=== PATIENT | female | born 1955 | race Caucasian/White ===

== ENCOUNTER → 2016-12-02 | Outpatient (CLI) | payer BC ==
--- NOTE | 2016-12-02 18:56 | XR ---
EXAMINATION TYPE: XR spine complete AP and Lat DATE OF EXAM: 12/02/2016 COMPARISON: NONE HISTORY: Neck pain back pain TECHNIQUE: 10 views FINDINGS: There is anterior spurring at C5-6 C6-7. Atlantoaxial facet joint is normal. There is no th oracic paraspinal mass. I see no thoracic compression fracture. There is no lumbar compression fractu re. Vertebra have overall normal alignment. Posterior elements are intact. Sacroiliac joints appear i ntact. IMPRESSION: Mild spondylotic changes. No fracture.
== END ==
LOC: RADXRMAIN 18:07
PROVIDERS: ATTEND Internal Medicine Rheumatology
DX: M47.812 Spondylosis without myelopathy or radiculopathy, cervical region (principal); M47.814 Spondylosis without myelopathy or radiculopathy, thoracic region; M47.816 Spondylosis without myelopathy or radiculopathy, lumbar region
CPT/HCPCS: 72082

== ENCOUNTER → 2017-03-13 | Outpatient (CLI) | payer BC | END | disposition home or self-care (01) | LOC: LABWHC1 12:57 | PROVIDERS: ATTEND Dermatology Dermatopathology | DX: L40.0 Psoriasis vulgaris (principal); Z11.1 Encounter for screening for respiratory tuberculosis; Z79.899 Other long term (current) drug therapy | CPT/HCPCS: 36415; 86480 ==

== ENCOUNTER 2017-10-24 06:56 | Day surgery (SDC) | payer BC ==
[2017-10-21 13:42] VITALS: BMI 32.5
[~2017-10-24 06:56] MED LIST: LACTATED RINGERS 1,000 ML IV SCH
[2017-10-24 07:27] LABS: Glucose,Whole Blood 120 mg/dL (75-99)
[2017-10-24 07:29] VITALS: RESP 16; TEMP 97.8
[2017-10-24] MEDS ORDERED: LIDOCAINE 1% 20 ML VIAL (10MG/ML) FOR IV START INTRADERMA ONE (07:29)
[2017-10-24] MEDS ORDERED: PROPOFOL 10 MG/ML 20 ML VIAL IV ONE (08:25)
--- NOTE | 2017-10-24 08:49 | P.PCN ---
Date of Procedure: 10/24/17 Procedure(s) Performed: BRIEF HISTORY: Patient is a 62-year-old pleasant 8 female, scheduled for an elective colonoscopy as a part of as a part of screening for colon neoplasia. PROCEDURE PERFORMED: Colonoscopy with biopsy. PREOPERATIVE DIAGNOSIS: Screening for colon cancer. IV sedation per Anesthesia. PROCEDURE: After informed consent was obtained, the patient, was brought into the endoscopy unit. IV sedation was administered by Anesthesia under continuous monitoring. Digital rectal examination was normal. Initially the Olympus CF- 160 flexible video colonoscope was then inserted in the rectum, gradually advanced into the cecum without any difficulty. Careful examination was performed as the scope was gradually being withdrawn. Ileocecal valve and the appendiceal orifice were visualized and appeared normal. Prep was excellent. Mucosa of the cecum, ascending colon, transverse colon, descending colon was normal. In the sigmoid colon there was a 5 mm sessile polyp removed by cold biopsy. In the rectum there was another 5 mm polyp that was removed by cold biopsy., sigmoid colon, and rectum appeared normal. Retroflexion was performed in the rectum and no lesions were seen. The patient tolerated the procedure well. IMPRESSION: 5 mm sigmoid colon polyp status post removal by cold biopsy 5 mm rectal polyp status post removal by biopsy Scattered sigmoid diverticulosis RECOMMENDATIONS: Findings of this examination were discussed with the patient and her family. She was advised to follow with the biopsy results. If the biopsy shows a tubular adenoma, she can have a repeat colonoscopy in 5 years.
[2017-10-24 09:05] VITALS: BP 113/75; PULSE 58
== END 2017-10-24 09:26 | disposition home or self-care (01) ==
LOC: ORWHC2ENDO 06:56
PROVIDERS: ATTEND Internal Medicine Gastroenterology
DX: Z12.11 Encounter for screening for malignant neoplasm of colon (principal); K63.5 Polyp of colon; K62.1 Rectal polyp; K57.30 Diverticulosis of large intestine without perforation or abscess without bleeding; Z79.82 Long term (current) use of aspirin; Z79.890 Hormone replacement therapy; Z79.899 Other long term (current) drug therapy; I25.10 Atherosclerotic heart disease of native coronary artery without angina pectoris; I10 Essential (primary) hypertension; I25.2 Old myocardial infarction; E78.5 Hyperlipidemia, unspecified; J45.909 Unspecified asthma, uncomplicated; G47.33 Obstructive sleep apnea (adult) (pediatric); Z99.89 Dependence on other enabling machines and devices; E07.9 Disorder of thyroid, unspecified; Z79.84 Long term (current) use of oral hypoglycemic drugs; Z79.1 Long term (current) use of non-steroidal anti-inflammatories (NSAID)
CPT/HCPCS: 88305; 45380; J2704

== ENCOUNTER → 2018-03-13 | Outpatient (CLI) | payer BC ==
--- NOTE | 2018-03-13 09:16 | MM ---
Reason for exam: clinical finding. Last mammogram was performed 4 years and 6 months ago. History: Patient is postmenopausal. Family history of breast cancer in maternal aunt at age 70. Indicated problem(s): lump or thickening in the right breast. Physical Findings: Nurse Summary: 2cm nodule in the right breast at 4 o'clock (nurse mj). MG 3D Diag Mammo W/Cad NATAN Bilateral CC and MLO view(s) were taken. Prior study comparison: August 27, 2013, bilateral MG screening mammo w CAD. July 14, 2012, bilateral digital screening mammo w/CAD. There are scattered fibroglandular densities. No suspicious abnormality. No significant new findings when compared with previous films. These results were verbally communicated with the patient and result sheet given to the patient on 03/13/18. ASSESSMENT: Incomplete: need additional imaging evaluation, BI-RAD 0 RECOMMENDATION: Ultrasound of the right breast. (palpable abnormality)
--- NOTE | 2018-03-13 09:22 | USB ---
Reason for exam: additional evaluation requested from abnormal screening. History: Patient is postmenopausal. Family history of breast cancer in maternal aunt at age 70. US Breast Limited RT Right limited breast ultrasound including focal area of concern, retroareolar and axilla demonstrates a 3.2 x 1.1 x 3.9cm solid, lipoma at 4 o'clock, benign finding. These results were verbally communicated with the patient and result sheet given to the patient on 03/13/18. ASSESSMENT: Benign, BI-RAD 2 RECOMMENDATION: Routine screening mammogram of both breasts in 1 year.
== END | disposition home or self-care (01) ==
LOC: RADMAMWWP 07:06
PROVIDERS: ATTEND Internal Medicine
DX: N63.10 Unspecified lump in the right breast, unspecified quadrant (principal); R92.8 Other abnormal and inconclusive findings on diagnostic imaging of breast
CPT/HCPCS: 77062; 77066

== ENCOUNTER 2018-11-21 15:45 | Observation (INO) | payer BC ==
[2018-11-21] MEDS ORDERED: IBUPROFEN 600 MG TAB PO STA (16:47)
--- NOTE | 2018-11-21 16:50 | ED ---
Chest Pain HPI - General Chief Complaint: Chest Pain Stated Complaint: Chest pain Time Seen by Provider: 11/21/18 15:50 Source: patient Mode of arrival: ambulatory Limitations: no limitations - History of Present Illness Initial Comments: The patient is 63-year-old female presents emergency room with reported chest pain which started sudden onset around 4 AM. She describes it as a substernal pressure without radiation. She admits to similar symptoms approximately 12 years ago when she had a KS. It required one stent placement. States that she did follow with Dr. Martinez every year. States that recently she has not seen him. Her last stress test was 3 years ago. She admits to associated shortness of breath and diaphoresis. Reports that she had numbness in her bilateral upper extremities. She did take an aspirin. Since her pain has been persistent she did finally agree to evaluation. This time she reports that her pain is graded as a 4 out of 10. She has ripping or tearing sensation to her back. Denies any nausea or vomiting. No cough, fevers or chills. Denies any abdominal pain. No changes in bowel or bladder habits. No history of DVTs or PEs. There are no other alleviating, precipitating or modifying factors - Related Data Home Medications Medication Instructions Recorded Confirmed Albuterol Inhaler [Ventolin Hfa 1 - 2 puff INHALATION RT-Q6H PRN 10/21/17 11/21/18 Inhaler] Aspirin 325 mg PO AC-SUPPER 10/21/17 11/21/18 Atenolol 25 mg PO DAILY 10/21/17 11/21/18 Atorvastatin [Lipitor] 20 mg PO AC-SUPPER 10/21/17 11/21/18 Citalopram Hydrobromide 20 mg PO AC-SUPPER 10/21/17 11/21/18 [Citalopram HBr] Levothyroxine Sodium 125 mcg PO HS 10/21/17 11/21/18 Lisinopril [Zestril] 20 mg PO AC-SUPPER 10/21/17 11/21/18 Meloxicam [Mobic] 7.5 mg PO AC-SUPPER 10/21/17 11/21/18 Montelukast [Singulair] 10 mg PO AC-SUPPER 10/21/17 11/21/18 Multivitamins, Thera [Multivitamin 1 tab PO DAILY 10/21/17 11/21/18 (formulary)] Ustekinumab [Stelara] 45 mg SQ Q90D 10/21/17 11/21/18 metFORMIN HCL [Glucophage] 500 mg PO BID 10/21/17 11/21/18 Mometasone/Formoterol [Dulera 100 2 puff INHALATION RT-BID 10/24/17 11/21/18 Mcg/5 Mcg Inhaler] Omeprazole 40 mg PO DAILY 11/21/18 11/21/18 Allergies Allergy/AdvReac Type Severity Reaction Status Date / Time No Known Allergies Allergy Verified 11/21/18 16:40 Review of Systems ROS Statement: Those systems with pertinent positive or pertinent negative responses have been documented in the HPI. ROS Other: All systems not noted in ROS Statement are negative. EKG Findings - EKG Comments: EKG Findings:: EKG demonstrates a normal sinus rhythm. Ventricular rate of 70. NH interval 154. QRS 98. QTC 483. There are no acute ST segment elevations or depressions concerning for ischemic changes Past Medical History Past Medical History: Asthma, Diabetes Mellitus, Eye Disorder, Liver Disease, Myocardial Infarction (KS), Osteoarthritis (OA), Pneumonia, Skin Disorder, Sleep Apnea/CPAP/BIPAP, Thyroid Disorder Additional Past Medical History / Comment(s): SOB with exertion, beginning of cataracts, fatty liver, psoroiatic arthritis, psoriasis, borderline sleep apnea, no current use of CPAP, hypothyroid, sensitive/delicate skin, tears and bruises easily. Last Myocardial Infarction Date:: 10 yrs ago History of Any Multi-Drug Resistant Organisms: None Reported Past Surgical History: Cholecystectomy, Heart Catheterization With Stent, Hysterectomy Additional Past Surgical History / Comment(s): Anal sphincter tear surgery, D&C, several miscarriages, stillbirth, laporotomy. Past Anesthesia/Blood Transfusion Reactions: Postoperative Nausea & Vomiting (PONV) Additional Past Anesthesia/Blood Transfusion Reaction / Comment(s): PONV with some surgeries, not all. Date of Last Stent Placement:: 2007 Past Psychological History: No Psychological Hx Reported Smoking Status: Former smoker Past Alcohol Use History: Rare Past Drug Use History: None Reported - Past Family History Mother Family Medical History: Cancer Additional Family Medical History / Comment(s): Lung cancer, cardiomyopathy, blood clots. General Exam Limitations: no limitations General appearance: alert, in no apparent distress Head exam: Present: atraumatic, normocephalic, normal inspection Eye exam: Present: normal appearance, PERRL, EOMI. Absent: scleral icterus, conjunctival injection, periorbital swelling ENT exam: Present: normal exam, mucous membranes moist Neck exam: Present: normal inspection. Absent: tenderness, meningismus, lymphadenopathy Respiratory exam: Present: normal lung sounds bilaterally. Absent: respiratory distress, wheezes, rales, rhonchi, stridor Cardiovascular Exam: Present: regular rate, normal rhythm, normal heart sounds. Absent: systolic murmur, diastolic murmur, rubs, gallop, clicks GI/Abdominal exam: Present: soft, normal bowel sounds. Absent: distended, tenderness, guarding, rebound, rigid Extremities exam: Present: normal inspection, full ROM, normal capillary refill. Absent: tenderness, pedal edema, joint swelling, calf tenderness Back exam: Present: normal inspection Neurological exam: Present: alert, oriented X3, CN II-XII intact Psychiatric exam: Present: normal affect, normal mood Skin exam: Present: warm, dry, intact, normal color. Absent: rash Course Vital Signs 11/21/18 11/21/18 11/21/18 15:46 17:13 19:17 Temperature 97.8 F Pulse Rate 66 68 60 Pulse Rate [ Laundry Manager ] Respiratory 16 18 18 Rate Blood Pressure 147/93 141/84 132/60 Blood Pressure [Left Arm] O2 Sat by Pulse 97 97 96 Oximetry 11/21/18 11/21/18 11/21/18 19:50 19:57 20:00 Temperature 98.2 F 98.5 F 97.8 F Pulse Rate 63 Pulse Rate [ 62 62 Laundry Manager ] Respiratory 18 16 16 Rate Blood Pressure 125/75 Blood Pressure 132/74 132/74 [Left Arm] O2 Sat by Pulse 96 96 96 Oximetry Chest Pain MDM - Core Measures AMI Core Measures Followed: Yes - Differential Diagnosis AMI, ACS, Pneumonia, Pleurisy-Other - MDM Upon arrival the patient is placed in room 5. She is hooked up to continuous pulse ox and cardiac monitoring. A 12-lead EKG is performed and the patient which demonstrates no acute signs of ischemia. Peripheral IV is established. I did offer the patient something for pain control. She is requesting Motrin for headache. Laboratory studies and a chest x-ray performed. Upon return the results are discussed with the patient. Lab results are unremarkable. First troponin is negative. Because the patient states that this feels like her previous KS, I did recommend admission to the hospital in order to continue to trend the patient's troponins and have cardiac evaluation. Patient did agree to this. I did call discuss the case with Dr. Schwarz's PA, Frannie. She did accept admission for the patient. Bridging orders are placed. The patient remained in stable condition and was transferred to the floor Disposition Clinical Impression: Chest pain Disposition: ADMITTED IP TO THIS HOSP Condition: Stable Is patient prescribed a controlled substance at d/c from ED?: No Decision to Admit Reason: Admit from EC Decision Date: 11/21/18 Decision Time: 18:06
[2018-11-21 17:02] LABS: Basophils % (A) 0 %; Eosinophils # (A) 0.1 k/uL (0-0.7); Eosinophils % (A) 2 %; HCT 39.6 % (34.0-46.0); HGB 13.7 gm/dL (11.4-16.0); Lymphocytes % (A) 24 %; MCH 30.6 pg (25.0-35.0); MCHC 34.6 g/dL (31.0-37.0); MCV 88.5 fL (80.0-100.0); Mean Platelet Volume 7.6; Monocytes # (A) 0.4 k/uL (0-1.0); Monocytes % (A) 5 %; Neutrophils # (A) 5.4 k/uL (1.3-7.7); Neutrophils % (A) 66 %; Platelet Count 277 k/uL (150-450); RBC 4.47 m/uL (3.80-5.40); RDW 15.3 % (11.5-15.5); WBC 8.3 k/uL (3.8-10.6)
[2018-11-21 17:10] LABS: ALT 75 U/L (9-52); AST 54 U/L (14-36); African American GFR (CKD) >90 (>60 ml/min/1.73 sqM); Albumin 4.4 g/dL (3.5-5.0); Alkaline Phosphatase 75 U/L (38-126); Anion Gap 9 mmol/L; Blood Urea Nitrogen 14 mg/dL (7-17); Calcium 9.8 mg/dL (8.4-10.2); Carbon Dioxide 23 mmol/L (22-30); Chloride 106 mmol/L (98-107); Glucose 118 mg/dL (74-99); Magnesium 1.9 mg/dL (1.6-2.3); Potassium 4.4 mmol/L (3.5-5.1); Sodium 138 mmol/L (137-145); Total Bilirubin 0.5 mg/dL (0.2-1.3)
[2018-11-21 17:14] LABS: INR 0.9 (<1.2); Partial Thromboplastin Time 23.4 sec (22.0-30.0)
[2018-11-21] MEDS ORDERED: NALOXONE 0.4 MG/ML 1 ML VIAL IV PRN (18:40)
[2018-11-21] MEDS ORDERED: LEVOTHYROXINE 125 MCG TAB PO SCH (21:00)
[2018-11-21] MEDS: SYMBICORT 80-4.5 MCG INHALER INHALATION SCH (21:04)
--- NOTE | 2018-11-21 21:51 | XR ---
EXAMINATION TYPE: XR chest 2V DATE OF EXAM: 11/21/2018 COMPARISON: NONE HISTORY: Chest pain TECHNIQUE: Frontal and lateral views of the chest are obtained. FINDINGS: Cardiac mediastinal silhouette is within normal limits. Atherosclerotic calcifications of the aorta. No pulmonary vascular congestion. Streak-like by basilar opacities likely on the basis of subsegmenta l atelectasis. No focal airspace consolidation. No pleural effusion or pneumothorax. Mild degenerativ e changes of the thoracic spine. IMPRESSION: No acute cardiopulmonary process.
[2018-11-21 21:57] LABS: Glucose,Whole Blood 178 mg/dL (75-99)
[2018-11-21 22:15] VITALS: BMI 32.5
[2018-11-22 05:00] VITALS: RESP 18
[2018-11-22 06:35] LABS: Glucose,Whole Blood 128 mg/dL (75-99)
[2018-11-22] MEDS ORDERED: PANTOPRAZOLE 40 MG TABLET PO SCH (07:30)
[2018-11-22] MEDS: SYMBICORT 80-4.5 MCG INHALER INHALATION SCH (07:48)
[2018-11-22] MEDS ORDERED: ATENOLOL 25 MG TAB PO SCH (09:00)
[2018-11-22 09:11] VITALS: BP 121/65; PULSE 64; TEMP 96.5
[2018-11-22 12:22] LABS: Glucose,Whole Blood 74 mg/dL (75-99)
--- NOTE | 2018-11-22 12:26 | CONS ---
CONSULTATION CHIEF COMPLAINT: Chest pain. This is a 63-year-old lady with history of coronary artery disease, status post prior myocardial infarction and angioplasty more than 10 years ago, diabetes, hypertension, dyslipidemia, who presented to the hospital having had an episode of chest pain. She tells me that she woke up early this morning with an episode of chest discomfort. Describes it as a pressure-like sensation, precordial without any radiation. There was no diaphoresis or shortness of breath. This gradually resolved after she came to the emergency room and received a sublingual nitroglycerin. At the time of my evaluation, she is pain free, hemodynamically stable and wants to go home. EKG does not reveal ischemic changes and cardiac enzymes have been negative. PAST MEDICAL HISTORY: Significant for CAD, hypertension, diabetes, dyslipidemia. MEDICATIONS: Medications at home include Glucophage 500 b.i.d., omeprazole 40 daily, Singulair, Mobic, Zestril, Lipitor, atenolol, aspirin and albuterol. ALLERGIES: There are no known drug allergies. FAMILY HISTORY: Negative for premature coronary artery disease. SOCIAL HISTORY: Negative for smoking, EtOH abuse, or drug abuse. REVIEW OF SYSTEMS: HEENT: Unremarkable. CARDIAC: As described above. RESPIRATORY: As described above. GI: Negative. GENITOURINARY: Negative. MUSCULOSKELETAL: Significant for arthritis. PSYCHOSOCIAL: Negative. ENDOCRINE: Negative. CONSTITUTIONAL: Negative. ONCOLOGICAL: Negative. OLAP DEVELOPER: Negative. Rest of the system review is not relevant. EXAM: Patient is comfortable at rest. Vital signs are stable. There is no jugular venous distention. Carotid upstroke is normal. There is no bruit. Chest exam reveals good air entry bilaterally. Heart exam reveals first and second heart sounds. No gallop. No murmur. No rub. Abdomen is soft, nontender. Exam of extremities did not reveal any edema. Peripheral pulses are felt OLAP DEVELOPER exam did not reveal focal neurological deficits. LAB: Show a hemoglobin of 13.7, platelet count is 277. Potassium is 4.4, creatinine is 0.5. Three sets of troponins are negative. ASSESSMENT: 1. Precordial chest pain, rule out ischemia. 2. Hypertension. 3. Dyslipidemia. PLAN: Patient wishes to go home and I will arrange for an outpatient stress test on her. I will obtain a 2D echo on her today. MMODL / IJN: [id number] /
[2018-11-22] MEDS ORDERED: MONTELUKAST 10 MG TAB PO SCH (17:30)
[2018-11-22] MEDS ORDERED: CITALOPRAM HYDROBROMIDE 20 MG TAB PO SCH (17:30)
[2018-11-22] MEDS ORDERED: MELOXICAM 7.5 MG TAB PO SCH (17:30)
[2018-11-22] MEDS ORDERED: ASPIRIN 325 MG TAB PO SCH (17:30)
[2018-11-22] MEDS ORDERED: ATORVASTATIN 20 MG TAB PO SCH (17:30)
[2018-11-22] MEDS ORDERED: LISINOPRIL 20 MG TAB PO SCH (17:30)
--- NOTE | 2018-11-22 18:28 | HP ---
HISTORY AND PHYSICAL This is a combined physical history of discharge summary. DATE OF SERVICE: This is 11/22/2018 CHIEF COMPLAINT: Chest pain. HISTORY OF PRESENT ILLNESS: This 63-year-old woman with a past history of asthma, diabetes mellitus, history of myocardial infarction, DJD, history of pneumonia, sleep apnea, history of CAD and stent being followed by Dr. Liao in the outpatient setting, was admitted with chest pain. The patient is complaining of pain felt in the anterior part of the chest yesterday which was pressure type of pain. The pain was felt at 4:00 am last night and the pain was almost similar to the pain the patient had when the patient had a heart attack about 12 years ago. The patient came to [facility] and was admitted for evaluation and treatment. There is no history of radiation of the pain, excessive sweating or palpitations. After admission the patient had multiple evaluations. EKG showed minimal ST-T changes. Otherwise, the troponins were found to be negative. Cardiology evaluation in progress. AST and ALT are mildly elevated at 54 and 75. There is no history of any fever or rigors. No headache, loss of consciousness or seizures. PAST MEDICAL HISTORY: History of asthma, diabetes, history of liver disease, history of myocardial infarction, history of pneumonia, history of sleep apnea, history of shortness of breath, history of fatty liver, psoriatic arthritis, psoriasis, history of CAD stent. HOME MEDICATION: 1. Metformin 500 mg p.o. b.i.d. 2. ( ) 45 mg subcu 90 days. 3. Lopressor 40 mg p.o. 4. Multivitamins. 5. Singulair 10 mg at supper. 6. Dulera 2 puffs b.i.d. 7. Mobic 7.5 mg a.c. supper. 8. Zestril 20 mg a.c. supper. 9. Levothyroxine 25 mcg p.o. q.h.s. 10.Celexa 20 mg a.c. supper. 11.Lipitor 20 mg a.c. supper. 12.Atenolol 25 mg p.o. 13.Aspirin 320 mg p.o. a.c. supper. 14.Albuterol 1-2 puffs q.6h p.r.n. ALLERGIES: Unknown. FAMILY HISTORY: History of lung cancer, history of cardiomyopathy, blood clots. SOCIAL HISTORY: No history of current smoking, previous smoker. No alcohol. REVIEW OF SYSTEMS: ENT No history of diminished hearing or vision. CARDIOVASCULAR As mentioned earlier. RESPIRATORY As mentioned earlier. GI No nausea, vomiting, or diarrhea. No dysuria. NERVOUS No numbness or weakness. ALLERGY/IMMUNOLOGY No asthma or hayfever. MUSCULOSKELETAL As mentioned earlier, HEMATOLOGY/ONCOLOGY Negative. ENDOCRINE Hypothyroidism, diabetes mellitus. CONSTITUTIONAL As mentioned earlier. PSYCHIATRY As mentioned earlier. PHYSICAL EXAMINATION: Alert and oriented x3. Pulse 64, blood pressure 120/65, respiration 18, temperature 98.5, pulse ox 94% on room air. HEENT: Conjunctivae normal. Oral mucosa moist. NECK: No jugular venous distention. No lymph node enlargement. CARDIOVASCULAR: S1, S2. RESPIRATORY: Diminished breath sounds at the bases. No rhonchi, no crackles. ABDOMEN: Soft, nontender. LEGS: No swelling. NERVOUS SYSTEM: Higher functions mentioned earlier. Moves all four limbs. No focal deficits. JOINTS: No active deforming arthropathy. LABS: CBC within normal limits. Glucose 178. Troponins negative. AST and ALT noted. EKG noted. Chest x-ray noted. ASSESSMENT: 1. Chest pain for evaluation, myocardial infarction ruled out, possible unstable angina. 2. History of coronary artery disease and stent. 3. History of asthma. 4. Diabetes type 2. 5. History of liver disease with fatty liver. 6. History of myocardial infarction. 7. History of degenerative joint disease. 8. History of pneumonia. 9. History of sleep apnea. 10.History of hypothyroidism. 11.Psoriatic arthritis and psoriasis. 12.History of cholecystectomy. 13.Remote history of nicotine dependence. RECOMMENDATIONS AND DISCUSSION: This 63-year-old woman who presented with multiple medical issues, at this time I recommend to continue current medication, continue symptomatic treatment. Cardiology has evaluated the patient and the patient is keen on going home. I would recommend the patient to be discharged. Continue the same medications as listed above and follow up with Cardiology for an outpatient stress test and as well as follow up with Dr. Liao. Please refer to the discharge sheet for list of medications. MMODL / IJN: [id number] /
== END 2018-11-22 13:20 | disposition home or self-care (01) ==
LOC: EC 15:45 → 3SCARD 18:41
PROVIDERS: ADMIT Hospitalist; ATTEND Hospitalist
DX: R07.2 Precordial pain (principal); R06.02 Shortness of breath; R61 Generalized hyperhidrosis; R20.0 Anesthesia of skin; J45.909 Unspecified asthma, uncomplicated; E11.9 Type 2 diabetes mellitus without complications; I25.2 Old myocardial infarction; M19.90 Unspecified osteoarthritis, unspecified site; G47.30 Sleep apnea, unspecified; I25.10 Atherosclerotic heart disease of native coronary artery without angina pectoris; K76.0 Fatty (change of) liver, not elsewhere classified; L40.50 Arthropathic psoriasis, unspecified; K76.9 Liver disease, unspecified; E03.9 Hypothyroidism, unspecified; I10 Essential (primary) hypertension; E78.5 Hyperlipidemia, unspecified; Z95.5 Presence of coronary angioplasty implant and graft; Z87.891 Personal history of nicotine dependence; Z87.01 Personal history of pneumonia (recurrent); Z90.49 Acquired absence of other specified parts of digestive tract; Z99.89 Dependence on other enabling machines and devices; Z79.84 Long term (current) use of oral hypoglycemic drugs; Z79.51 Long term (current) use of inhaled steroids; Z79.899 Other long term (current) drug therapy; Z79.82 Long term (current) use of aspirin; Z79.1 Long term (current) use of non-steroidal anti-inflammatories (NSAID); Z79.890 Hormone replacement therapy; Z80.1 Family history of malignant neoplasm of trachea, bronchus and lung; Z82.49 Family history of ischemic heart disease and other diseases of the circulatory system; Z83.2 Family history of diseases of the blood and blood-forming organs and certain disorders involving the immune mechanism
CPT/HCPCS: 99285; 36415; 94640 ×2; 94760; 93005; 80053; 83735; 84484 ×2; 85025; 85610; 85730; 71046; G0378 ×2

== ENCOUNTER → 2018-12-16 | Outpatient (CLI) | payer BC ==
--- NOTE | 2018-12-16 10:01 | US ---
EXAMINATION TYPE: US liver DATE OF EXAM: 12/16/2018 COMPARISON: NONE CLINICAL HISTORY: R94.5 Abnormal results of liver function studies. Abn labs, no pain, GB removed EXAM MEASUREMENTS: Liver Length: 19.8 cm CBD: 0.3 cm Right Kidney: 11.0 x 4.8 x 4.4 cm Pancreas: wnl Liver: Appears echogenic and coarse in appearance. Enlarged in size. Gallbladder: Surgically absent Evidence for sonographic Ball's sign: neg CBD: wnl Right Kidney: wnl There is no ascites. IMPRESSION: Hepatomegaly, correlate for possible hepatocellular disease, hepatic steatosis.
== END | disposition home or self-care (01) ==
LOC: RADUSWWP 08:22
PROVIDERS: ATTEND Internal Medicine
DX: R16.0 Hepatomegaly, not elsewhere classified (principal); R94.5 Abnormal results of liver function studies
CPT/HCPCS: 76705

== ENCOUNTER → 2019-04-20 | Outpatient (CLI) | payer BC ==
--- NOTE | 2019-04-20 09:46 | MM ---
Reason for exam: screening (asymptomatic). Last mammogram was performed 1 year and 1 month ago. History: Patient is postmenopausal. Family history of breast cancer in maternal aunt at age 70. Physical Findings: A clinical breast exam by your physician is recommended on an annual basis and results should be correlated with mammographic findings. MG Screening Mammo w CAD Bilateral CC and MLO view(s) were taken. Prior study comparison: March 13, 2018, bilateral MG 3d diag mammo w/cad NATAN. August 27, 2013, bilateral MG screening mammo w CAD. There are scattered fibroglandular densities. There is no discrete abnormality. No significant changes when compared with prior studies. ASSESSMENT: Negative, BI-RAD 1 RECOMMENDATION: Routine screening mammogram of both breasts in 1 year.
== END | disposition home or self-care (01) ==
LOC: RADMAMWWP 07:09
PROVIDERS: ATTEND Internal Medicine
DX: Z12.31 Encounter for screening mammogram for malignant neoplasm of breast (principal)
CPT/HCPCS: 77067

== ENCOUNTER → 2019-04-20 | Outpatient (CLI) | payer BC ==
[2019-04-20 08:12] LABS: Basophils # (A) 0.1 k/uL (0-0.2); Basophils % (A) 1 %; Eosinophils # (A) 0.1 k/uL (0-0.7); Eosinophils % (A) 1 %; HCT 42.5 % (34.0-46.0); HGB 13.7 gm/dL (11.4-16.0); Lymphocytes % (A) 34 %; MCH 28.7 pg (25.0-35.0); MCHC 32.3 g/dL (31.0-37.0); MCV 88.8 fL (80.0-100.0); Mean Platelet Volume 7.9; Monocytes # (A) 0.3 k/uL (0-1.0); Monocytes % (A) 6 %; Neutrophils # (A) 3.3 k/uL (1.3-7.7); Neutrophils % (A) 55 %; Platelet Count 261 k/uL (150-450); RBC 4.79 m/uL (3.80-5.40); RDW 13.3 % (11.5-15.5); WBC 5.9 k/uL (3.8-10.6)
[2019-04-20 18:09] LABS: African American GFR (CKD) 108.4 (60.0-200.0); Albumin 4.8 g/dL (3.80-4.90); Anion Gap 6.7 mmol/L (4.00-12.00); BUN/Creat Ratio 15.71 Ratio (12.00-20.00); Calcium 9.7 mg/dL (8.7-10.3); Carbon Dioxide 28.3 mmol/L (21.6-31.8); Globulin 1.6 g/dL (1.6-3.3); Non-African American GFR(CKD) 93.5 (60.0-200.0); Potassium 4.2 mmol/L (3.5-5.5); Total Bilirubin 0.6 mg/dL (0.3-1.2); Total Protein 6.4 g/dL (6.2-8.2)
== END | disposition home or self-care (01) ==
LOC: LABWHC1 07:12
PROVIDERS: ATTEND Dermatology Dermatopathology
DX: L40.0 Psoriasis vulgaris (principal); K76.0 Fatty (change of) liver, not elsewhere classified; Z79.899 Other long term (current) drug therapy
CPT/HCPCS: 36415; 80053; 85025; 86480

== ENCOUNTER → 2020-02-03 | Outpatient (CLI) | payer BC | END | disposition home or self-care (01) | LOC: LABWHC1 13:38 | PROVIDERS: ATTEND Internal Medicine | DX: R05 Cough (principal) | CPT/HCPCS: U0003; C9803 ==

== ENCOUNTER 2020-03-01 09:26 | Emergency (ER) | payer BC ==
[2020-03-01 09:35] VITALS: BP 119/83; RESP 18; TEMP 97.9
[2020-03-01] MEDS ORDERED: SODIUM CHLORIDE 0.9% 1,000 ML IV ONE (09:54)
[2020-03-01] MEDS ORDERED: methylPREDNISolone SOD SUCCI 125 MG/2 ML VIAL IV STA (09:56)
--- NOTE | 2020-03-01 09:58 | ED ---
General Adult HPI - General Chief complaint: Nausea/Vomiting/Diarrhea Stated complaint: headache/vomiting/diarrhea Time Seen by Provider: 03/01/20 09:37 Source: patient, RN notes reviewed, old records reviewed Mode of arrival: ambulatory Limitations: no limitations - History of Present Illness Initial comments: 64-year-old female presents emergency department today with complaints of diarrhea headache nausea vomiting and cough for the past 5 days. Patient was sent by her PCP as well as her for evaluation. She denies any known history of sick contacts. She reports that she seems to be somewhat improving is not have any vomiting in the past 24 hours. Patient states that she has had history of asthma does complain of some dyspnea. She denies any other complaints. - Related Data Home Medications Medication Instructions Recorded Confirmed Aspirin 325 mg PO HS 10/21/17 03/01/20 Atorvastatin [Lipitor] 20 mg PO HS 10/21/17 03/01/20 Citalopram Hydrobromide 20 mg PO HS 10/21/17 03/01/20 [Citalopram HBr] Levothyroxine Sodium 125 mcg PO DAILY 10/21/17 03/01/20 Montelukast [Singulair] 10 mg PO HS 10/21/17 03/01/20 Multivitamins, Thera [Multivitamin 1 tab PO DAILY 10/21/17 03/01/20 (formulary)] atenoloL [Atenolol] 25 mg PO DAILY 10/21/17 03/01/20 lisinopriL [Zestril] 20 mg PO HS 10/21/17 03/01/20 metFORMIN HCL [Glucophage] 500 mg PO BID 10/21/17 03/01/20 Omeprazole 40 mg PO HS 11/21/18 03/01/20 Budesonide/Formoterol Fumarate 2 puff INHALATION RT-BID 03/01/20 03/01/20 [Symbicort 160-4.5 Mcg Inhaler] Previous Rx's Medication Instructions Recorded Azithromycin [Zithromax Z-pack (6 0 mg PO DIRECTED 5 Days #6 tab 03/01/20 tabs)] Cholecalciferol [Vitamin D3] 400 unit PO DAILY@1200 #20 tablet 03/01/20 Ondansetron Odt [Zofran Odt] 4 mg PO Q8HR PRN #12 tab 03/01/20 Zinc Gluconate [Zinc] 50 mg PO DAILY #20 tablet 03/01/20 methylPREDNISolone Dose Pack 4 mg PO DIRECTED #21 package 03/01/20 [Medrol Dose Pack] Allergies Allergy/AdvReac Type Severity Reaction Status Date / Time No Known Allergies Allergy Verified 03/01/20 11:11 Review of Systems ROS Statement: Those systems with pertinent positive or pertinent negative responses have been documented in the HPI. ROS Other: All systems not noted in ROS Statement are negative. Past Medical History Past Medical History: Asthma, Diabetes Mellitus, Eye Disorder, Liver Disease, Myocardial Infarction ([place]), Osteoarthritis (OA), Pneumonia, Skin Disorder, Sleep Apnea/CPAP/BIPAP, Thyroid Disorder Additional Past Medical History / Comment(s): SOB with exertion, beginning of cataracts, fatty liver, psoroiatic arthritis, psoriasis, borderline sleep apnea, no current use of CPAP, hypothyroid, sensitive/delicate skin, tears and bruises easily. Last Myocardial Infarction Date:: 10 yrs ago History of Any Multi-Drug Resistant Organisms: None Reported Past Surgical History: Cholecystectomy, Heart Catheterization With Stent, Hysterectomy Additional Past Surgical History / Comment(s): Anal sphincter tear surgery, D&C, several miscarriages, stillbirth, laporotomy. Past Anesthesia/Blood Transfusion Reactions: Postoperative Nausea & Vomiting (PONV) Additional Past Anesthesia/Blood Transfusion Reaction / Comment(s): PONV with some surgeries, not all. Date of Last Stent Placement:: 2007 Past Psychological History: No Psychological Hx Reported Smoking Status: Former smoker Past Alcohol Use History: Rare Past Drug Use History: None Reported - Past Family History Mother Family Medical History: Cancer Additional Family Medical History / Comment(s): Lung cancer, cardiomyopathy, blood clots. General Exam - General Exam Comments Initial Comments: 64-year-old female. No distress. Limitations: no limitations General appearance: alert, in no apparent distress Head exam: Present: atraumatic, normocephalic, normal inspection Eye exam: Present: normal appearance, PERRL, EOMI. Absent: scleral icterus, conjunctival injection, periorbital swelling ENT exam: Present: normal exam Neck exam: Present: normal inspection. Absent: tenderness, meningismus, lymphadenopathy Respiratory exam: Present: normal lung sounds bilaterally. Absent: respiratory distress, wheezes, rales, rhonchi, stridor Cardiovascular Exam: Present: regular rate, normal rhythm, normal heart sounds. Absent: systolic murmur, diastolic murmur, rubs, gallop, clicks GI/Abdominal exam: Present: soft, normal bowel sounds. Absent: distended, tenderness, guarding, rebound, rigid Extremities exam: Present: normal inspection, full ROM, normal capillary refill. Absent: tenderness, pedal edema, joint swelling, calf tenderness Back exam: Present: normal inspection Neurological exam: Present: alert, oriented X3, CN II-XII intact Psychiatric exam: Present: normal affect, normal mood Skin exam: Present: warm, dry, intact, normal color. Absent: rash Course Vital Signs 03/01/20 09:32 Temperature 97.9 F Pulse Rate 67 Respiratory 18 Rate Blood Pressure 119/83 O2 Sat by Pulse 96 Oximetry EKG Findings - EKG Comments: EKG Findings:: EKG shows normal sinus rhythm and nonspecific ST abnormality. Abnormal EKG. Ventricular rate of 94 bpm. Was 152 ms. QS duration is 94 ms. QT QTc is 350/437 ms. Medical Decision Making - Medical Decision Making 64-year-old female presents emergency room today with cough congestion nausea and fatigue. Patient is here with similar complaints. Has been test positive for cocaine. Her test is negative. Chest x-ray shows no infiltrate. She has history of asthma. She is given IV saline eyedrops fluids. She was reevaluated and resting heavily bed. Discussed signs and the Patient on azithromycin and steroids vitamin D and Zofran. Discussed return parameters - Lab Data Result diagrams: 03/01/20 09:59 03/01/20 09:59 Lab Results 03/01/20 03/01/20 03/01/20 Range/Units 09:59 09:59 09:59 WBC 4.5 (3.8-10.6) k/uL RBC 4.75 (3.80-5.40) m/uL Hgb 14.1 (11.4-16.0) gm/dL Hct 40.0 (34.0-46.0) % MCV 84.3 (80.0-100.0) fL MCH 29.7 (25.0-35.0) pg MCHC 35.2 (31.0-37.0) g/dL RDW 13.3 (11.5-15.5) % Plt Count 287 (150-450) k/uL MPV 7.3 Neutrophils % 67 % Lymphocytes % 23 % Monocytes % 7 % Eosinophils % 1 % Basophils % 1 % Neutrophils # 3.0 (1.3-7.7) k/uL Lymphocytes # 1.1 (1.0-4.8) k/uL Monocytes # 0.3 (0-1.0) k/uL Eosinophils # 0.0 (0-0.7) k/uL Basophils # 0.1 (0-0.2) k/uL PT 9.9 (9.0-12.0) sec INR 0.9 (<1.2) APTT 22.8 (22.0-30.0) sec Sodium 141 (137-145) mmol/L Potassium 3.2 L (3.5-5.1) mmol/L Chloride 105 (98-107) mmol/L Carbon Dioxide 28 (22-30) mmol/L Anion Gap 8 mmol/L BUN 9 (7-17) mg/dL Creatinine 0.54 (0.52-1.04) mg/dL Est GFR (CKD-EPI)AfAm >90 (>60 ml/min/1.73 sqM) Est GFR (CKD-EPI)NonAf >90 (>60 ml/min/1.73 sqM) Glucose 120 H (74-99) mg/dL Plasma Lactic Acid Barber (0.7-2.0) mmol/L Calcium 9.3 (8.4-10.2) mg/dL Magnesium 1.7 (1.6-2.3) mg/dL Total Bilirubin 1.2 (0.2-1.3) mg/dL AST 63 H (14-36) U/L ALT 70 H (4-34) U/L Alkaline Phosphatase 64 (38-126) U/L Lactate Dehydrogenase 666 H (313-618) U/L C-Reactive Protein 21.2 H (<10.0) mg/L Total Protein 6.6 (6.3-8.2) g/dL Albumin 4.0 (3.5-5.0) g/dL Coronavirus (PCR) (Not Detectd) 03/01/20 03/01/20 Range/Units 09:59 09:59 WBC (3.8-10.6) k/uL RBC (3.80-5.40) m/uL Hgb (11.4-16.0) gm/dL Hct (34.0-46.0) % MCV (80.0-100.0) fL MCH (25.0-35.0) pg MCHC (31.0-37.0) g/dL RDW (11.5-15.5) % Plt Count (150-450) k/uL MPV Neutrophils % % Lymphocytes % % Monocytes % % Eosinophils % % Basophils % % Neutrophils # (1.3-7.7) k/uL Lymphocytes # (1.0-4.8) k/uL Monocytes # (0-1.0) k/uL Eosinophils # (0-0.7) k/uL Basophils # (0-0.2) k/uL PT (9.0-12.0) sec INR (<1.2) APTT (22.0-30.0) sec Sodium (137-145) mmol/L Potassium (3.5-5.1) mmol/L Chloride (98-107) mmol/L Carbon Dioxide (22-30) mmol/L Anion Gap mmol/L BUN (7-17) mg/dL Creatinine (0.52-1.04) mg/dL Est GFR (CKD-EPI)AfAm (>60 ml/min/1.73 sqM) Est GFR (CKD-EPI)NonAf (>60 ml/min/1.73 sqM) Glucose (74-99) mg/dL Plasma Lactic Acid Barber 1.6 (0.7-2.0) mmol/L Calcium (8.4-10.2) mg/dL Magnesium (1.6-2.3) mg/dL Total Bilirubin (0.2-1.3) mg/dL AST (14-36) U/L ALT (4-34) U/L Alkaline Phosphatase (38-126) U/L Lactate Dehydrogenase (313-618) U/L C-Reactive Protein (<10.0) mg/L Total Protein (6.3-8.2) g/dL Albumin (3.5-5.0) g/dL Coronavirus (PCR) Not Detected (Not Detectd) 03/01/20 10:34 EKG performed at 10:30 shows sinus bradycardia otherwise normal EKG. Ventricular rate of 52 bpm. It was 192 ms. QRS duration is 96 ms. QT QTc is 518/41 ms. - Radiology Data Radiology results: report reviewed S x-ray shows COPD changes without acute infiltrate. Disposition Clinical Impression: COVID-19 Disposition: HOME SELF-CARE Condition: Good Instructions (If sedation given, give patient instructions): Viral Syndrome ([place]) Additional Instructions: Follow-up with primary care doctor symptoms continue persist or worsen. Patient is to be away from other people for 14 days with diagnosis of coated. Patient should return to the ED if any alarming signs or symptoms occur. Prescriptions: methylPREDNISolone Dose Pack [Medrol Dose Pack] 4 mg PO DIRECTED #21 package Cholecalciferol [Vitamin D3] 400 unit PO DAILY@1200 #20 tablet Zinc Gluconate [Zinc] 50 mg PO DAILY #20 tablet Azithromycin [Zithromax Z-pack (6 tabs)] 0 mg PO DIRECTED 5 Days #6 tab Ondansetron Odt [Zofran Odt] 4 mg PO Q8HR PRN #12 tab PRN Reason: Nausea Is patient prescribed a controlled substance at d/c from ED?: No Referrals: Chiara Liao MD [Primary Care Provider] - 1-2 days Time of Disposition: 11:40
--- NOTE | 2020-03-01 10:21 | XR ---
EXAMINATION TYPE: XR chest 1V portable DATE OF EXAM: 03/01/2020 COMPARISON: 11/21/2018 HISTORY: Shortness of breath TECHNIQUE: Single frontal view of the chest is obtained. FINDINGS: Heart size stable. Subsegmental changes left lung base. No overt failure. No pleural effus ion. Hyperinflation suggests COPD. Coarsened interstitium stable. IMPRESSION: 1. Correlate for COPD with no definite acute infiltrate. Correlate for chronic interstitial lung dise ase.
[2020-03-01 10:23] LABS: Basophils # (A) 0.1 k/uL (0-0.2); Basophils % (A) 1 %; Eosinophils % (A) 1 %; HGB 14.1 gm/dL (11.4-16.0); Lymphocytes # (A) 1.1 k/uL (1.0-4.8); Lymphocytes % (A) 23 %; MCH 29.7 pg (25.0-35.0); MCHC 35.2 g/dL (31.0-37.0); MCV 84.3 fL (80.0-100.0); Mean Platelet Volume 7.3; Monocytes # (A) 0.3 k/uL (0-1.0); Monocytes % (A) 7 %; Neutrophils % (A) 67 %; Platelet Count 287 k/uL (150-450); RBC 4.75 m/uL (3.80-5.40); RDW 13.3 % (11.5-15.5); WBC 4.5 k/uL (3.8-10.6)
[2020-03-01 10:31] LABS: INR 0.9 (<1.2); Partial Thromboplastin Time 22.8 sec (22.0-30.0); Prothrombin Time 9.9 sec (9.0-12.0)
[2020-03-01 10:45] LABS: ALT 70 U/L (4-34); AST 63 U/L (14-36); African American GFR (CKD) >90 (>60 ml/min/1.73 sqM); Alkaline Phosphatase 64 U/L (38-126); Anion Gap 8 mmol/L; Blood Urea Nitrogen 9 mg/dL (7-17); Calcium 9.3 mg/dL (8.4-10.2); Carbon Dioxide 28 mmol/L (22-30); Chloride 105 mmol/L (98-107); Glucose 120 mg/dL (74-99); LDH 666 U/L (313-618); Magnesium 1.7 mg/dL (1.6-2.3); Non-African American GFR(CKD) >90 (>60 ml/min/1.73 sqM); Potassium 3.2 mmol/L (3.5-5.1); Sodium 141 mmol/L (137-145); Total Bilirubin 1.2 mg/dL (0.2-1.3); Total Protein 6.6 g/dL (6.3-8.2)
[2020-03-01 10:58] LABS: C Reactive Protein 21.2 mg/L (<10.0)
[2020-03-01 12:21] VITALS: PULSE 66
[2020-03-01 20:22] LABS: Ferritin 131.2 ng/mL (10.0-291.0)
== END 2020-03-01 12:17 | disposition home or self-care (01) ==
LOC: EC 09:26
DX: J45.909 Unspecified asthma, uncomplicated (principal); R11.0 Nausea; R53.83 Other fatigue; E03.9 Hypothyroidism, unspecified; M19.90 Unspecified osteoarthritis, unspecified site; E11.9 Type 2 diabetes mellitus without complications; I25.2 Old myocardial infarction; G47.30 Sleep apnea, unspecified; Z79.82 Long term (current) use of aspirin; Z79.899 Other long term (current) drug therapy; Z79.890 Hormone replacement therapy; Z79.51 Long term (current) use of inhaled steroids; Z79.84 Long term (current) use of oral hypoglycemic drugs; Z90.49 Acquired absence of other specified parts of digestive tract; Z87.891 Personal history of nicotine dependence; Z99.89 Dependence on other enabling machines and devices; Z20.828 Contact with and (suspected) exposure to other viral communicable diseases
CPT/HCPCS: 36415; 93005; 80053; 82728; 83605; 83615; 83735; 85025; 85610; 85730; 86140; 84145; 87635; 71045; 99284; 96374; 96361; J2930

== ENCOUNTER → 2020-04-26 | Outpatient (CLI) | payer BC ==
--- NOTE | 2020-05-01 09:31 | MM ---
Reason for exam: screening (asymptomatic). Last mammogram was performed 1 year ago. History: Patient is postmenopausal. Family history of breast cancer in maternal aunt at age 70. Physical Findings: A clinical breast exam by your physician is recommended on an annual basis and results should be correlated with mammographic findings. MG 3D Screening Mammo W/Cad Bilateral CC and MLO view(s) were taken. Prior study comparison: April 20, 2019, bilateral MG screening mammo w CAD. March 13, 2018, bilateral MG 3d diag mammo w/cad NATAN. There are scattered fibroglandular densities. There are benign appearing round calcifications bilaterally. There is chronic tiny nodularity bilaterally. There is no discrete abnormality. ASSESSMENT: Benign, BI-RAD 2 RECOMMENDATION: Routine screening mammogram of both breasts in 1 year.
== END | disposition home or self-care (01) ==
LOC: RADMAMWWP 11:41
PROVIDERS: ATTEND Internal Medicine
DX: Z12.31 Encounter for screening mammogram for malignant neoplasm of breast (principal)
CPT/HCPCS: 77063; 77067

== ENCOUNTER → 2020-07-12 | Outpatient (CLI) | payer BC | END | disposition home or self-care (01) | LOC: LABWHC1 10:52 | PROVIDERS: ATTEND Dermatology Dermatopathology | DX: L40.0 Psoriasis vulgaris (principal); Z79.899 Other long term (current) drug therapy | CPT/HCPCS: 36415; 86480 ==

== ENCOUNTER 2021-03-01 19:34 | Emergency (ER) | payer BC ==
[2021-03-01] MEDS ORDERED: SODIUM CHLORIDE 0.9% 500 ML 500 ML IV ONE (21:27)
[2021-03-01] MEDS ORDERED: DEXAMETHASONE SOD PHOSPHATE 10 MG/ML 1 ML VIAL IVP STA (21:27)
[2021-03-01] MEDS ORDERED: ACETAMINOPHEN TAB 500 MG TAB PO STA (21:37)
[2021-03-01] MEDS ORDERED: IBUPROFEN 600 MG TAB PO STA (21:37)
--- NOTE | 2021-03-01 21:37 | ED ---
General Adult HPI - General Chief complaint: Shortness of Breath Stated complaint: SHANNA,Fever Time Seen by Provider: 03/01/21 21:18 Source: patient Mode of arrival: ambulatory Limitations: no limitations - History of Present Illness Initial comments: 65 year-old female patient presents to the emergency department for evaluation of fever, cough, and shortness of breath that started on Friday. States she is also feeling weak and achy. States she did take tylenol around 12:00 this afternoon. She denies nausea, vomiting, or diarrhea. She denies sputum pro duction with her cough. She has been vaccinated for COVID. Did receive flu shot on Friday. She does have history of COPD, states her O2 saturation is generally around 90%. She does not wear oxygen at home. Patient denies any recent rash, abdominal pain, constipation, back pain, numbness, tingling, dizziness, weakness, hematuria, dysuria, urinary urgency, urinary frequency, headache, visual changes, or any other complaints. - Related Data Home Medications Medication Instructions Recorded Confirmed Aspirin 325 mg PO HS 10/21/17 03/01/21 Atorvastatin [Lipitor] 20 mg PO HS 10/21/17 03/01/21 Citalopram Hydrobromide 20 mg PO HS 10/21/17 03/01/21 Levothyroxine Sodium 125 mcg PO DAILY 10/21/17 03/01/21 Montelukast [Singulair] 10 mg PO HS 10/21/17 03/01/21 Multivitamins, Thera [Multivitamin 1 tab PO HS 10/21/17 03/01/21 (formulary)] atenoloL 25 mg PO DAILY 10/21/17 03/01/21 lisinopriL [Zestril] 20 mg PO HS 10/21/17 03/01/21 metFORMIN HCL [Glucophage] 500 mg PO BID 10/21/17 03/01/21 Omeprazole 40 mg PO HS 11/21/18 03/01/21 Albuterol Inhaler [Ventolin Hfa 2 puff INHALATION RT-QID PRN 03/01/21 03/01/21 Inhaler] Budesonide/Glycopyr/Formoterol 2 puff INHALATION RT-BID 03/01/21 03/01/21 [Breztri Aerosphere Inhaler] Ustekinumab [Stelara] 1 dose SQ Q90D 03/01/21 03/01/21 Previous Rx's Medication Instructions Recorded Ipratropium-Albuterol Nebulize 3 ml INHALATION Q4H PRN #90 ml 03/02/21 [Duoneb 0.5 mg-3 mg/3 ml Soln] predniSONE 50 mg PO DAILY #5 tablet 03/02/21 Allergies Allergy/AdvReac Type Severity Reaction Status Date / Time No Known Allergies Allergy Verified 03/01/21 21:50 Review of Systems ROS Statement: Those systems with pertinent positive or pertinent negative responses have been documented in the HPI. ROS Other: All systems not noted in ROS Statement are negative. Past Medical History Past Medical History: Asthma, Diabetes Mellitus, Eye Disorder, Liver Disease, Myocardial Infarction ([place]), Osteoarthritis (OA), Pneumonia, Skin Disorder, Sleep Apnea/CPAP/BIPAP, Thyroid Disorder Additional Past Medical History / Comment(s): SOB with exertion, beginning of cataracts, fatty liver, psoroiatic arthritis, psoriasis, borderline sleep apnea, no current use of CPAP, hypothyroid, sensitive/delicate skin, tears and bruises easily. Last Myocardial Infarction Date:: 10 yrs ago History of Any Multi-Drug Resistant Organisms: None Reported Past Surgical History: Cholecystectomy, Heart Catheterization With Stent, Hysterectomy Additional Past Surgical History / Comment(s): Anal sphincter tear surgery, D&C, several miscarriages, stillbirth, laporotomy. Past Anesthesia/Blood Transfusion Reactions: Postoperative Nausea & Vomiting (PONV) Additional Past Anesthesia/Blood Transfusion Reaction / Comment(s): PONV with some surgeries, not all. Date of Last Stent Placement:: 2007 Past Psychological History: No Psychological Hx Reported Smoking Status: Former smoker Past Alcohol Use History: Rare Past Drug Use History: None Reported - Past Family History Mother Family Medical History: Cancer Additional Family Medical History / Comment(s): Lung cancer, cardiomyopathy, blood clots. General Exam Limitations: no limitations General appearance: alert, in no apparent distress, other (This is a well developed, well nourished adult female in no acute distress. ) ENT exam: Present: normal exam, normal oropharynx, mucous membranes moist Respiratory exam: Present: normal lung sounds bilaterally. Absent: respiratory distress, wheezes, rales, rhonchi, stridor Cardiovascular Exam: Present: regular rate, normal rhythm, normal heart sounds. Absent: systolic murmur, diastolic murmur, rubs, gallop, clicks GI/Abdominal exam: Present: soft, normal bowel sounds. Absent: distended, tenderness, guarding, rebound, rigid Neurological exam: Present: alert, oriented X3, CN II-XII intact Psychiatric exam: Present: normal affect, normal mood Skin exam: Present: warm, dry, intact, normal color. Absent: rash Course Vital Signs 03/01/21 03/02/21 03/02/21 21:12 00:39 00:50 Temperature 102.2 F H Pulse Rate 66 62 60 Respiratory 20 Rate Blood Pressure 183/76 O2 Sat by Pulse 91 L Oximetry 03/02/21 01:34 Temperature 98.3 F Pulse Rate 70 Respiratory 18 Rate Blood Pressure 167/76 O2 Sat by Pulse 92 L Oximetry Medical Decision Making - Medical Decision Making 65-year-old female patient presents to the emergency department today for evaluation of shortness of breath, cough, congestion, fever. Physical examination did reveal clear equal lung sounds. Labs reviewed and were unremarkable. She did test positive for RSV. Chest x-ray negative. Patient satting around 91-92% on room air. This is normal for her due to her COPD. She is given IV dose of steroids. Breathing treatment. She'll be discharged home with a course of steroids. Given prescription for DuoNeb treatments. She does have a nebulizer at home. She is instructed to follow-up with her primary care physician for recheck in 1-2 days. Return parameters were discussed in detail. She verbalizes understanding and agrees with this plan. Case discussed with my attending Dr. Portillo. - Lab Data Result diagrams: 03/01/21 22:24 03/01/21 22:24 Lab Results 03/01/21 03/01/21 03/01/21 Range/Units 21:29 22:24 22:24 WBC 8.5 (3.8-10.6) k/uL RBC 4.41 (3.80-5.40) m/uL Hgb 13.4 (11.4-16.0) gm/dL Hct 39.2 (34.0-46.0) % MCV 88.9 (80.0-100.0) fL MCH 30.4 (25.0-35.0) pg MCHC 34.2 (31.0-37.0) g/dL RDW 14.2 (11.5-15.5) % Plt Count 262 (150-450) k/uL MPV 7.6 Neutrophils % 85 % Lymphocytes % 8 % Monocytes % 3 % Eosinophils % 1 % Basophils % 1 % Neutrophils # 7.2 (1.3-7.7) k/uL Lymphocytes # 0.7 L (1.0-4.8) k/uL Monocytes # 0.3 (0-1.0) k/uL Eosinophils # 0.1 (0-0.7) k/uL Basophils # 0.0 (0-0.2) k/uL Sodium 138 (137-145) mmol/L Potassium 3.1 L (3.5-5.1) mmol/L Chloride 102 (98-107) mmol/L Carbon Dioxide 23 (22-30) mmol/L Anion Gap 13 mmol/L BUN 9 (7-17) mg/dL Creatinine 0.52 (0.52-1.04) mg/dL Est GFR (CKD-EPI)AfAm >90 (>60 ml/min/1.73 sqM) Est GFR (CKD-EPI)NonAf >90 (>60 ml/min/1.73 sqM) Glucose 133 H (74-99) mg/dL Plasma Lactic Acid Barber (0.7-2.0) mmol/L Calcium 9.5 (8.4-10.2) mg/dL Total Bilirubin 1.4 H (0.2-1.3) mg/dL AST 31 (14-36) U/L ALT 29 (4-34) U/L Alkaline Phosphatase 54 (38-126) U/L Lactate Dehydrogenase 599 (313-618) U/L C-Reactive Protein 2.1 H (<1.0) mg/dL Total Protein 7.0 (6.3-8.2) g/dL Albumin 4.5 (3.5-5.0) g/dL Coronavirus (PCR) Not Detected (Not Detectd) Influenza Type A (PCR) (Not Detectd) Influenza Type B (PCR) (Not Detectd) RSV (PCR) (Not Detectd) SARS-CoV-2 (PCR) (Not Detectd) 03/01/21 03/01/21 Range/Units 22:24 22:41 WBC (3.8-10.6) k/uL RBC (3.80-5.40) m/uL Hgb (11.4-16.0) gm/dL Hct (34.0-46.0) % MCV (80.0-100.0) fL MCH (25.0-35.0) pg MCHC (31.0-37.0) g/dL RDW (11.5-15.5) % Plt Count (150-450) k/uL MPV Neutrophils % % Lymphocytes % % Monocytes % % Eosinophils % % Basophils % % Neutrophils # (1.3-7.7) k/uL Lymphocytes # (1.0-4.8) k/uL Monocytes # (0-1.0) k/uL Eosinophils # (0-0.7) k/uL Basophils # (0-0.2) k/uL Sodium (137-145) mmol/L Potassium (3.5-5.1) mmol/L Chloride (98-107) mmol/L Carbon Dioxide (22-30) mmol/L Anion Gap mmol/L BUN (7-17) mg/dL Creatinine (0.52-1.04) mg/dL Est GFR (CKD-EPI)AfAm (>60 ml/min/1.73 sqM) Est GFR (CKD-EPI)NonAf (>60 ml/min/1.73 sqM) Glucose (74-99) mg/dL Plasma Lactic Acid Barber 1.1 (0.7-2.0) mmol/L Calcium (8.4-10.2) mg/dL Total Bilirubin (0.2-1.3) mg/dL AST (14-36) U/L ALT (4-34) U/L Alkaline Phosphatase (38-126) U/L Lactate Dehydrogenase (313-618) U/L C-Reactive Protein (<1.0) mg/dL Total Protein (6.3-8.2) g/dL Albumin (3.5-5.0) g/dL Coronavirus (PCR) (Not Detectd) Influenza Type A (PCR) Not Detected (Not Detectd) Influenza Type B (PCR) Not Detected (Not Detectd) RSV (PCR) Detected A (Not Detectd) SARS-CoV-2 (PCR) Not Detected (Not Detectd) - Radiology Data Radiology results: report reviewed, image reviewed 2 views of the chest are obtained. Report was reviewed in its entirety. Im pression by Dr. Chisholm shows no acute cardiopulmonary disease//process. COPD changes. Disposition Clinical Impression: RSV (acute bronchiolitis due to respiratory syncytial virus) Disposition: HOME SELF-CARE Condition: Good Instructions (If sedation given, give patient instructions): Respiratory Syncytial Virus ([place]) Additional Instructions: Take medications as directed. Follow-up with her primary care physician for recheck in 1-2 days. Return for any new, worsening, or concerning symptoms. Prescriptions: Ipratropium-Albuterol Nebulize [Duoneb 0.5 mg-3 mg/3 ml Soln] 3 ml INHALATION Q4H PRN #90 ml PRN Reason: Wheezing/Shortness of breath predniSONE 50 mg PO DAILY #5 tablet Is patient prescribed a controlled substance at d/c from ED?: No Referrals: Chiara Liao MD [Primary Care Provider] - 1-2 days Time of Disposition: 00:20
--- NOTE | 2021-03-01 22:20 | XR ---
INDICATION: Patient age:Female; 65 years old; Reason for study: Cough/fever; PHH. COMPARISON: Multiple radiographs, with the most recent on 03/01/2020. TECHNIQUE: Frontal and lateral views of the chest. FINDINGS: Lungs/Pleura: There is flattening of the diaphragm with increased lucency of the lungs. No evidence o f pneumothorax, pleural effusion or focal consolidation. Pulmonary vascularity: Unremarkable. Heart/mediastinum: Cardiomediastinal silhouette is unremarkable. Musculoskeletal: No acute osseous pathology. IMPRESSION: No acute cardiopulmonary disease/process. COPD changes.
[2021-03-01 22:39] LABS: Basophils % (A) 1 %; Eosinophils # (A) 0.1 k/uL (0-0.7); Eosinophils % (A) 1 %; HCT 39.2 % (34.0-46.0); HGB 13.4 gm/dL (11.4-16.0); Lymphocytes # (A) 0.7 k/uL (1.0-4.8); Lymphocytes % (A) 8 %; MCH 30.4 pg (25.0-35.0); MCHC 34.2 g/dL (31.0-37.0); MCV 88.9 fL (80.0-100.0); Mean Platelet Volume 7.6; Monocytes # (A) 0.3 k/uL (0-1.0); Monocytes % (A) 3 %; Neutrophils # (A) 7.2 k/uL (1.3-7.7); Neutrophils % (A) 85 %; Platelet Count 262 k/uL (150-450); RBC 4.41 m/uL (3.80-5.40); RDW 14.2 % (11.5-15.5); WBC 8.5 k/uL (3.8-10.6)
[2021-03-01 22:53] LABS: ALT 29 U/L (4-34); AST 31 U/L (14-36); African American GFR (CKD) >90 (>60 ml/min/1.73 sqM); Albumin 4.5 g/dL (3.5-5.0); Alkaline Phosphatase 54 U/L (38-126); Anion Gap 13 mmol/L; Blood Urea Nitrogen 9 mg/dL (7-17); C Reactive Protein 2.1 mg/dL (<1.0); Calcium 9.5 mg/dL (8.4-10.2); Carbon Dioxide 23 mmol/L (22-30); Chloride 102 mmol/L (98-107); Glucose 133 mg/dL (74-99); LDH 599 U/L (313-618); Non-African American GFR(CKD) >90 (>60 ml/min/1.73 sqM); Potassium 3.1 mmol/L (3.5-5.1); Sodium 138 mmol/L (137-145); Total Bilirubin 1.4 mg/dL (0.2-1.3)
[2021-03-02] MEDS ORDERED: IPRATROPIUM-ALBUTEROL 3 ML NEB INHALATION STA (00:18)
[2021-03-02 01:36] VITALS: BP 167/76; PULSE 70; RESP 18; TEMP 98.3
== END 2021-03-02 01:34 | disposition home or self-care (01) ==
LOC: EC 19:34
DX: J21.0 Acute bronchiolitis due to respiratory syncytial virus (principal); J45.909 Unspecified asthma, uncomplicated; I25.2 Old myocardial infarction; E11.9 Type 2 diabetes mellitus without complications; M19.90 Unspecified osteoarthritis, unspecified site; E03.9 Hypothyroidism, unspecified; Z79.82 Long term (current) use of aspirin; Z79.899 Other long term (current) drug therapy; Z79.890 Hormone replacement therapy; Z79.84 Long term (current) use of oral hypoglycemic drugs; Z79.51 Long term (current) use of inhaled steroids; Z20.822 Contact with and (suspected) exposure to COVID-19; Z87.891 Personal history of nicotine dependence
CPT/HCPCS: 36415; 94640; 80053; 83605; 83615; 85025; 86140; 87635; 87636; 71046; 99285; 96374; J1100

== ENCOUNTER → 2021-09-01 | Outpatient (CLI) | payer BC | END | disposition home or self-care (01) | LOC: LABWHC1 10:40 | PROVIDERS: ATTEND Dermatology | DX: L40.0 Psoriasis vulgaris (principal) | CPT/HCPCS: 36415; 86480 ==

== ENCOUNTER → 2021-10-05 | Outpatient (CLI) | payer BC ==
--- NOTE | 2021-10-08 09:28 | MM ---
Reason for Exam: Screening (asymptomatic). Last mammogram was performed 1 year(s) and 5 month(s) ago. Patient History: Menarche at age 14. First Full-Term at age 20. Hysterectomy at age 44. Postmenopausal. Maternal aunt had breast cancer, age 70. Risk Values: Jemima 5 year model risk: 1.2%. NCI Lifetime model risk: 4.7%. Prior Study Comparison: 03/13/2018 Bilateral Diagnostic Mammogram, [facility]. 04/20/2019 Bilateral Screening Mammogram, [facility]. 04/26/2020 Bilateral Screening Mammogram, [facility]. Tissue Density: There are scattered fibroglandular densities. Findings: Analyzed By CAD. There is no suspicious group of microcalcifications or new suspicious mass in either breast. Overall Assessment: Negative, BI-RAD 1 Management: Screening Mammogram of both breasts in 1 year. A clinical breast exam by your physician is recommended on an annual basis and results should be correlated with mammographic findings. Electronically signed and approved by: Valentino Cote M.D. Radiologis
== END | disposition home or self-care (01) ==
LOC: RADMAMWWP 09:23
PROVIDERS: ATTEND Internal Medicine
DX: Z12.31 Encounter for screening mammogram for malignant neoplasm of breast (principal)
CPT/HCPCS: 77063; 77067

== ENCOUNTER 2022-09-24 14:54 | Emergency (ER) | payer BC ==
[2022-09-24 15:07] VITALS: RESP 16
[2022-09-24] MEDS ORDERED: KETOROLAC 15 MG/ML 1 ML VIAL IM STA (16:26)
[2022-09-24] MEDS ORDERED: DIPH,PERTUS(ACELL)TETVAC-LF 0.5 ML VIAL IM ONE (16:26)
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
[2022-09-24] MEDS ORDERED: LIDOCAINE 2%-EPI 1:100,000 20 ML VIAL SQ STA (18:15)
[2022-09-24] MEDS ORDERED: BACITRACIN OINT 1 EACH PACKET TOPICAL ONE (19:01)
[2022-09-24 19:09] VITALS: BP 150/79; PULSE 60; TEMP 98.1
== END 2022-09-24 19:09 | disposition home or self-care (01) ==
LOC: EC 14:54
DX: S05.32XA Ocular laceration without prolapse or loss of intraocular tissue, left eye, initial encounter (principal); S09.90XA Unspecified injury of head, initial encounter; J45.909 Unspecified asthma, uncomplicated; E11.9 Type 2 diabetes mellitus without complications; E07.9 Disorder of thyroid, unspecified; I25.2 Old myocardial infarction; M19.90 Unspecified osteoarthritis, unspecified site; Z87.891 Personal history of nicotine dependence; Z79.82 Long term (current) use of aspirin; Z79.899 Other long term (current) drug therapy; Z79.890 Hormone replacement therapy; Z23 Encounter for immunization; W26.8XXA Contact with other sharp object(s), not elsewhere classified, initial encounter
CPT/HCPCS: 72125; 70486; 70450; 90715; 99283; 90471; 96372; J1885

== ENCOUNTER → 2023-04-03 | Outpatient (CLI) | payer BC ==
[2023-04-03 15:25] LABS: ALT 59 U/L (8-44); AST 34 U/L (13-35); Albumin 4.8 g/dL (3.8-4.9); Albumin/Globulin Ratio 2.09 Ratio (1.60-3.17); Alkaline Phosphatase 73 U/L (41-126); Blood Urea Nitrogen 11.9 mg/dL (9.0-27.0); Calcium 10.2 mg/dL (8.7-10.3); Carbon Dioxide 21.9 mmol/L (21.6-31.8); Chloride 105 mmol/L (96-109); Globulin 2.3 g/dL (1.6-3.3); Glucose 98 mg/dL (70-110); Potassium 4.1 mmol/L (3.5-5.5); Sodium 141 mmol/L (135-145); Total Bilirubin 0.5 mg/dL (0.3-1.2); Total Protein 7.1 g/dL (6.2-8.2)
[2023-04-03 15:31] LABS: Hepatitis B Surface AB- Quant 3.5 mIU/mL; Hepatitis B Surface Antigen Nonreactive; Hepatitis C IgG Antibody Nonreactive
[2023-04-03 16:30] LABS: Basophils # (A) 0.06 X 10*3/uL (0.00-0.10); Basophils % (A) 0.8 %; Eosinophils # (A) 0.24 X 10*3/uL (0.04-0.35); Eosinophils % (A) 3.1 %; HCT 42.1 % (37.2-46.3); HGB 13.9 g/dL (12.0-15.0); Lymphocytes # (A) 2.11 X 10*3/uL (0.90-5.00); Lymphocytes % (A) 27.1 %; MCH 29.4 pg (27.0-32.0); Mean Platelet Volume 10.1 FL (9.5-12.2); Monocytes # (A) 0.67 X 10*3/uL (0.20-1.00); Monocytes % (A) 8.6 %; NRBC Per 100 WBC 0 X 10*3/uL (0.00-0.01); Neutrophils # (A) 4.68 X 10*3/uL (1.80-7.70); Neutrophils % (A) 60.1 %; Platelet Count 299 X 10*3/uL (140-440); RBC 4.73 X 10*6/uL (4.10-5.20); RDW 13.1 % (11.5-14.5); WBC 7.78 X 10*3/uL (4.50-10.00)
[2023-04-03 18:58] LABS: HIV 2 AB Non-Reactive (Non-Reactive); HIV AB P24 Non-Reactive (Non-Reactive); HIV P24 AG Non-Reactive (Non-Reactive)
== END | disposition home or self-care (01) ==
LOC: LABWHC1 08:21
PROVIDERS: ATTEND Nurse Practitioner Family
DX: L40.0 Psoriasis vulgaris (principal); Z79.899 Other long term (current) drug therapy
CPT/HCPCS: 36415; 80053; 85025; 86480; 86704; 86706; 86803; 87340; 87390

== ENCOUNTER → 2023-04-03 | Outpatient (CLI) | payer BC ==
--- NOTE | 2023-04-05 14:47 | BD ---
EXAMINATION TYPE: Axial Bone Density DATE OF EXAM: 04/03/2023 CLINICAL HISTORY: 67 years old Female. ICD-10 CODE: N95.8 MENOPAUSAL AND PERIMENOPAUSAL STATE Height: 5 ft 6 1/2 in Weight: 204 FRAX RISK QUESTIONS: Alcohol (3 or more units per day): no Family History (Parent hip fracture): no Glucocorticoids (More than 3mos): no (Ex: prednisone, prednisolone, methylprednisolone, dexamethasone, and hydrocortisone). History of Fracture in Adulthood: yes Secondary Osteoporosis: 1. Type 1 Diabetes: no 2. Hyperthyroidism: no 3. Menopause before 45: yes 4. Malnutrition: no 5. Chronic liver disease: no Rheumatoid Arthritis: no Current Tobacco Use: no RISK FACTORS HISTORY OF: Surgery to Spine/Hip(right/left)/Wrist (right/left): no Family History of Osteoporosis: no Active: no Diet low in dairy products/other sources of calcium: no Postmenopausal woman: yes Take estrogen and/or progesterone medications: none now Lost more than 2 inches in height since high school: yes Frequent falls: unsteady Poor Health: good Hyperparathyroidism: no Adrenal Insufficiency: no MEDICATIONS: Thyroid Medications: yes Which medication: synthroid How Long: approx 10 years Additional Medications: synthroid, atenolol, lisinopril, metformin, aspirin, montelukast, omeprazole , Stelara, monjaro, Additional History: rt carpal tunnel surg EXAM MEASUREMENTS: Bone mineral densitometry was performed using the [employer] System. Bone mineral density as measured about the Lumbar spine is: ----- L1-L4(G/cm2): 1.176 T Score Values are as follows: ----- L1: 0.3 ----- L2: -0.2 ----- L3: 0.0 ----- L4: -0.3 ----- L1-L4: 0.0 Z Score Values are as follows: ----- L1: 0.9 ----- L2: 0.5 ----- L3: 0.7 ----- L4: 0.4 ----- L1-L4: 0.6 baseline Bone mineral density about the R hip (g/cm2): 0.934 Bone mineral density about the L hip (g/cm2): 1.005 T Score values are as follows: -----R Neck: -0.7 -----L Neck: -0.2 -----R Total: -0.1 -----L Total: 0.1 Z Score values are as follows: -----R Neck: 0.1 -----L Neck: 0.7 -----R Total: 0.5 -----L Total: 0.7 baseline FRAX%s: The graph provided illustrates a 12.1 % chance for a major osteoporotic fx and a 0.7 % chance for the hips probability for fx in 10 years time. IMPRESSION: Normal (Values between +1 and -1 indicate normal bone mass). Consider repeating this study in 5 year s or sooner if there is some new clinical indication. NOTE: T-SCORE=SD OF THE YOUNG ADULT MEAN.
--- NOTE | 2023-04-05 15:36 | MM ---
Reason for Exam: Screening (asymptomatic). Last mammogram was performed 1 year(s) and 6 month(s) ago. Patient History: Menarche at age 14. First Full-Term at age 20. Hysterectomy at age 44. Postmenopausal. Patient has history of breast feeding. Maternal aunt had breast cancer, age 70. Paternal aunt had breast cancer. Risk Values: Jemima 5 year model risk: 1.2%. NCI Lifetime model risk: 4.6%. Prior Study Comparison: 03/13/2018 Bilateral Diagnostic Mammogram, [facility]. 04/20/2019 Bilateral Screening Mammogram, [facility]. 04/26/2020 Bilateral Screening Mammogram, [facility]. 10/05/2021 Bilateral MG 3D screening mammo w/cad, [facility]. Tissue Density: There are scattered fibroglandular densities. Findings: Analyzed By CAD. The pattern is symmetrical and stable. No significant interval changes. Persistent focal asymmetry is now outer mid left breast. No suspicious groups of microcalcifications, spiculated or lobular masses, architectural distortion or other secondary signs of malignancy are mammographically apparent. Overall Assessment: Benign, BI-RAD 2 Management: Screening Mammogram of both breasts in 1 year. A negative mammogram report should not preclude additional follow up of suspicious palpable abnormalities. Patient should continue monthly self breast exam. A clinical breast exam by your physician is recommended on an annual basis and results should be correlated with mammographic findings. Electronically signed and approved by: Derek Collazo D.O. Radiologis
== END | disposition home or self-care (01) ==
LOC: RADBDWWP 08:15
PROVIDERS: ATTEND Internal Medicine
DX: Z12.31 Encounter for screening mammogram for malignant neoplasm of breast (principal); Z78.0 Asymptomatic menopausal state; Z80.3 Family history of malignant neoplasm of breast
CPT/HCPCS: 77063; 77067; 77080

== ENCOUNTER 2024-09-20 12:07 | Observation (INO) | payer BC ==
--- NOTE | 2024-09-20 13:14 | XR ---
EXAMINATION TYPE: XR chest 2V DATE OF EXAM: 09/20/2024 1:08 PM COMPARISON: Chest radiographs from 03/01/2021 TECHNIQUE: XR chest 2V Frontal and lateral views of the chest. CLINICAL INDICATION:Female, 69 years old with history of Chest pain; FINDINGS: Lungs/Pleura: There is no evidence of pleural effusion, focal consolidation, or pneumothorax. Pulmonary vascularity: Unremarkable. Heart/mediastinum: Cardiomediastinal silhouette is unremarkable. Atherosclerotic calcifications are seen in the aorta. Musculoskeletal: No acute osseous pathology. IMPRESSION: No acute cardiopulmonary disease/process. [facility], , 09/20/2024 1:12 PM
--- NOTE | 2024-09-20 13:39 | ED ---
Chest Pain HPI - General Source: patient, RN notes reviewed Mode of arrival: ambulatory Limitations: no limitations <Espinoza Jean - Last Filed: 09/20/24 13:38> - General Source: patient, RN notes reviewed Limitations: no limitations <Daniel Eastman - Last Filed: 09/20/24 16:01> - General Chief Complaint: Chest Pain Stated Complaint: Chest Pain Time Seen by Provider: 09/20/24 13:20 - History of Present Illness Initial Comments: Quick note 69-year-old female presents emergency department chief complaint of right-sided chest pressure. He states his right-sided central pressure feeling she does have a history of CO with 1 stent. Patient does have a history of diabetes, hypertension hyperlipidemia. Patient is on medication well-controlled she sees Dr. Grace. (Espinoza Jean) Patient is a 69-year-old female present to the emergency department with concerns with chest discomfort. Onset of symptoms was yesterday evening. Discomfort has been intermittent. Discomfort very mild at this time. D iscomfort feels like pressure. Patient did have some associated dyspnea. Patient does have history of previous cardiac disease with somewhat similar symptoms. No nausea or diaphoresis. (Daniel Eastman) - Related Data Home Medications Medication Instructions Recorded Confirmed Aspirin 325 mg PO HS 10/21/17 03/01/21 Atorvastatin [Lipitor] 20 mg PO HS 10/21/17 03/01/21 Citalopram Hydrobromide 20 mg PO HS 10/21/17 03/01/21 [Citalopram HBr] Levothyroxine Sodium 125 mcg PO DAILY 10/21/17 03/01/21 Montelukast [Singulair] 10 mg PO HS 10/21/17 03/01/21 Multivitamins, Thera [Multivitamin 1 tab PO HS 10/21/17 03/01/21 (formulary)] atenoloL 25 mg PO DAILY 10/21/17 03/01/21 lisinopriL [Zestril] 20 mg PO HS 10/21/17 03/01/21 metFORMIN HCL [Glucophage] 500 mg PO BID 10/21/17 03/01/21 Omeprazole 40 mg PO HS 11/21/18 03/01/21 Albuterol Inhaler [Ventolin Hfa 2 puff INHALATION RT-QID PRN 03/01/21 03/01/21 Inhaler] Budesonide/Glycopyr/Formoterol 2 puff INHALATION RT-BID 03/01/21 03/01/21 [Breztri Aerosphere Inhaler] Ustekinumab [Stelara] 1 dose SQ Q90D 03/01/21 03/01/21 Previous Rx's Medication Instructions Recorded Ipratropium-Albuterol Nebulize 3 ml INHALATION Q4H PRN #90 ml 03/02/21 [Duoneb 0.5 mg-3 mg/3 ml Soln] predniSONE 50 mg PO DAILY #5 tablet 03/02/21 Allergies Allergy/AdvReac Type Severity Reaction Status Date / Time No Known Allergies Allergy Verified 09/20/24 12:16 Review of Systems ROS Other: All systems not noted in ROS Statement are negative. <Espinoza Jean - Last Filed: 09/20/24 13:38> ROS Other: All systems not noted in ROS Statement are negative. Constitutional: Denies: fever Eyes: Denies: eye pain ENT: Denies: ear pain Cardiovascular: Reports: as per HPI, chest pain <Daniel Eastman - Last Filed: 09/20/24 16:01> ROS Statement: Those systems with pertinent positive or pertinent negative responses have been documented in the HPI. EKG Findings - EKG Results: EKG: interpreted by ERMD, sinus rhythm, normal axis, normal QRS, normal ST/T (Repolarization changes) <Daniel Eastman - Last Filed: 09/20/24 16:01> Past Medical History Past Medical History: Asthma, Diabetes Mellitus, Eye Disorder, Liver Disease, Myocardial Infarction (CO), Osteoarthritis (OA), Pneumonia, Skin Disorder, Sleep Apnea/CPAP/BIPAP, Thyroid Disorder Additional Past Medical History / Comment(s): SOB with exertion, beginning of cataracts, fatty liver, psoroiatic arthritis, psoriasis, borderline sleep apnea, no current use of CPAP, hypothyroid, sensitive/delicate skin, tears and bruises easily. covid X2, RSV Last Myocardial Infarction Date:: 10 yrs ago History of Any Multi-Drug Resistant Organisms: None Reported Past Surgical History: Cholecystectomy, Heart Catheterization With Stent, Hysterectomy Additional Past Surgical History / Comment(s): Anal sphincter tear surgery, D&C, several miscarriages, stillbirth, laporotomy. Past Anesthesia/Blood Transfusion Reactions: Postoperative Nausea & Vomiting (PONV) Additional Past Anesthesia/Blood Transfusion Reaction / Comment(s): PONV with some surgeries, not all. Date of Last Stent Placement:: 2007 Past Psychological History: No Psychological Hx Reported Smoking Status: Former smoker Past Alcohol Use History: Rare Past Drug Use History: None Reported - Past Family History Mother Family Medical History: Cancer Additional Family Medical History / Comment(s): Lung cancer, cardiomyopathy, blood clots. <Espinoza Jean - Last Filed: 09/20/24 13:38> General Exam Limitations: no limitations <Espinoza Jean - Last Filed: 09/20/24 13:38> Limitations: no limitations General appearance: alert, in no apparent distress Head exam: Present: normocephalic Eye exam: Present: normal appearance Neck exam: Present: normal inspection Respiratory exam: Present: normal lung sounds bilaterally. Absent: chest wall tenderness Cardiovascular Exam: Present: regular rate, normal rhythm, normal heart sounds Expanded Peripheral pulses: 2+: Radial (R), Radial (L), Posterior Tibialis (R), Posterior Tibialis (L) GI/Abdominal exam: Present: soft. Absent: tenderness Extremities exam: Present: normal inspection. Absent: pedal edema, calf tenderness Neurological exam: Present: alert Psychiatric exam: Present: normal affect, normal mood Skin exam: Present: normal color <Daniel Eastman - Last Filed: 09/20/24 16:01> - General Exam Comments Initial Comments: Visual Physical Exam Vital signs reviewed General: Well-appearing, nontoxic, no acute distress. Head: Normocephalic, atraumatic Eyes: PERRLA, EOMI ENT: Airway patent Chest: Nonlabored breathing Skin: No visual rash, normal skin tone Neuro: Alert and oriented 3 Musculoskeletal: No gross abnormalities (Espinoza Jean) Course Vital Signs 09/20/24 12:14 Temperature 97.8 F Pulse Rate 71 Respiratory 18 Rate Blood Pressure 123/75 O2 Sat by Pulse 98 Oximetry Chest Pain MDM <Espinoza Jean - Last Filed: 09/20/24 13:38> <Daniel Eastman - Last Filed: 09/20/24 16:01> - MDM I completed the quick note portion of this chart signed Espinoza Jean PA-C (Espinoza Jean) Was pt. sent in by a medical professional or institution (Dr. YUE, FIXER SUPERVISOR, urgent care, hospital, or fpc...) When possible be specific @ -No Did you speak to anyone other than the patient for history (EMS, parent, family, police, friend...)? What history was obtained from this source @ -No Did you review nursing and triage notes (agree or disagree)? Why? @ -I reviewed and agree with nursing and triage notes Were old charts reviewed (outside hosp., previous admission, EMS record, old EKG, old radiological studies, urgent care reports/EKG's, fpc records)? Report findings @ -No old charts were reviewed Differential Diagnosis (chest pain, altered mental status, abdominal pain women, abdominal pain men, vaginal bleeding, weakness, fever, dyspnea, syncope, headache, dizziness, GI bleed, back pain, seizure, CVA, palpatations, mental health, musculoskeletal)? @ -Differential Chest Pain: Stable Angina, Unstable Angina, STEMI, NSTEMI Aortic Dissection, Pneumothorax, Musculoskeletal, Esophageal Spasm GERD, Cholecystitis, Pancreatitis, Zoster, this is not meant to be an all-inclusive list. EKG interpreted by me (3pts min.). @ -As above X-rays interpreted by me (1pt min.). @ -Chest x-ray does not reveal acute abnormality CT interpreted by me (1pt min.). @ -None done U/S interpreted by me (1pt. min.). @ -None done What testing was considered but not performed or refused? (CT, X-rays, U/S, labs)? Why? @ -None What meds were considered but not given or refused? Why? @ -None Did you discuss the management of the patient with other professionals (professionals i.e. YUE Perez, FIXER SUPERVISOR, lab, RT, psych nurse, social media intern, aerodynamics engineer, teacher, radiation officer, caser shoe parts)? Give summary @ -Case was discussed with Dr. Schwarz who will admit covering Dr. Liao Was smoking cessation discussed for >3mins.? @ -No Was critical care preformed (if so, how long)? @ -No Were there social determinants of health that impacted care today? How? (Homelessness, low income, unemployed, alcoholism, drug addiction, transportation, low edu. Level, literacy, decrease access to med. care, halfway, rehab)? @ -No Was there de-escalation of care discussed even if they declined (Discuss DNR or withdrawal of care, Hospice)? DNR status @ -No What co-morbidities impacted this encounter? (DM, HTN, Smoking, COPD, CAD, Cancer, CVA, ARF, Chemo, Hep., AIDS, mental health diagnosis, sleep apnea, morbid obesity)? @ -Coronary artery disease history Was patient admitted / discharged? Hospital course, mention meds given and route, prescriptions, significant lab abnormalities, going to OR and other pertinent info. @ -Patient presents with chest discomfort, tightness somewhat similar to previous. Initial evaluation unremarkable. Patient reevaluated and updated. Patient will be admitted, admission orders written. Undiagnosed new problem with uncertain prognosis? @ -No Drug Therapy requiring intensive monitoring for toxicity (Heparin, Nitro, Insulin, Cardizem)? @ -No Were any procedures done? @ -No Diagnosis/symptom? @ -Chest pain Acute, or Chronic, or Acute on Chronic? @ -Acute Uncomplicated (without systemic symptoms) or Complicated (systemic symptoms)? @ -Default Side effects of treatment? @ -No Exacerbation, Progression, or Severe Exacerbation? @ -No Poses a threat to life or bodily function? How? (Chest pain, [place], CO, pneumonia, PE, COPD, DKA, ARF, appy, cholecystitis, CVA, Diverticulitis, Homicidal, Suicidal, threat to staff... and all critical care pts) @ -Threat to cardiac function (Daniel Eastman) Disposition <Espinoza Jean - Last Filed: 09/20/24 13:38> Is patient prescribed a controlled substance at d/c from ED?: No Time of Disposition: 16:00 <Daniel Eastman - Last Filed: 09/20/24 16:01> Clinical Impression: Chest pain Disposition: ADMITTED IP TO THIS HOSP Referrals: Chiara Liao MD [Primary Care Provider] - 1-2 days
[2024-09-20 13:55] LABS: Basophils # (A) 0.06 10*3/uL (0.00-0.10); Basophils % (A) 0.7 %; Eosinophils # (A) 0.22 10*3/uL (0.04-0.35); Eosinophils % (A) 2.6 %; HCT 40.6 % (37.2-46.3); HGB 14.2 g/dL (12.0-15.0); Lymphocytes # (A) 2.29 10*3/uL (0.90-5.00); Lymphocytes % (A) 27.2 %; MCH 30.4 pg (27.0-32.0); MCHC 35.0 g/dL (32.0-37.0); MCV 86.9 fL (80.0-97.0); Monocytes # (A) 0.72 10*3/uL (0.20-1.00); Monocytes % (A) 8.6 %; Neutrophils # (A) 5.10 10*3/uL (1.80-7.70); Neutrophils % (A) 60.5 %; Platelet Count 282 10*3/uL (140-440); RBC 4.67 10*6/uL (4.10-5.20); RDW 13.2 % (11.5-14.5); WBC 8.42 10*3/uL (4.50-10.00)
[2024-09-20 14:09] LABS: INR 1.0 (<1.2); Partial Thromboplastin Time 22.6 sec (22.0-30.0); Prothrombin Time 10.7 sec (10.0-12.5)
[2024-09-20 14:15] LABS: ALT 37 U/L (4-34); AST 32 U/L (14-36); African American GFR (CKD) >90 (>60 ml/min/1.73 sqM); Albumin 4.8 g/dL (3.5-5.0); Alkaline Phosphatase 80 U/L (38-126); Anion Gap 13 mmol/L; Blood Urea Nitrogen 8 mg/dL (7-17); Calcium 11.0 mg/dL (8.4-10.2); Carbon Dioxide 25 mmol/L (22-30); Chloride 104 mmol/L (98-107); Glucose 75 mg/dL (74-99); Non-African American GFR(CKD) >90 (>60 ml/min/1.73 sqM); Potassium 4.2 mmol/L (3.5-5.1); Sodium 142 mmol/L (137-145); Total Protein 7.4 g/dL (6.3-8.2)
[2024-09-20] MEDS ORDERED: NITROGLYCERIN SL TABS 0.4 MG TAB SUBLINGUAL PRN (16:01)
[2024-09-20] MEDS: ASPIRIN 81 MG PO STA (16:14)
[2024-09-20] MEDS: NITROGLYCERIN OINT 1 INCH/GM PACKET TOPICAL SCH (17:55)
[2024-09-20] MEDS: IBUPROFEN 400 MG TAB PO PRN (22:36)
--- NOTE | 2024-09-21 02:32 | HP ---
HISTORY AND PHYSICAL CHIEF COMPLAINT: Chest pain. HISTORY OF PRESENT ILLNESS: 69-year-old woman being followed by Dr. Liao in the outpatient and had previous history of CAD stent. The patient is complaining of discomfort and pressure type of sensation in the center part of chest, right side, ongoing, recurrent and the patient came to [facility], admitted for evaluation and treatment. There is no history of fever, rigors, or chills at this time. Initial workup was negative. PAST MEDICAL HISTORY: Reviewed, include asthma, diabetes mellitus, CAD stent. Rest of the chart is also reviewed. HOME MEDICATIONS: Reviewed, include prednisone. Dose and medication not confirmed. ALLERGIES: None. FAMILY HISTORY: History of lung cancer. SOCIAL HISTORY: No history of smoking or alcohol. REVIEW OF SYSTEMS: Fourteen-point review of systems is negative except as mentioned earlier. PHYSICAL EXAMINATION: VITAL SIGNS: Pulse is 75, blood pressure 140/90, respirations 18. HEENT: Conjunctivae normal. NECK: No JVD. CARDIOVASCULAR: S1, S2. ABDOMEN: Soft, nontender. LEGS: No edema. No swelling. NERVOUS SYSTEM: NO focal deficit. SKIN: No rashes. LABORATORY DATA: Reviewed. Troponin has been negative. ASSESSMENT: 1. Chest pain, possible unstable angina. 2. History of CAD stent. 3. Diabetes mellitus type 2. 4. History of asthma. 5. History of liver disease. 6. History of degenerative joint disease. 7. Multiple complex medical issues. RECOMMENDATION: 1. This is a 69-year-old woman, who presented with multiple complex medical issues. We will monitor the patient closely. Continue current medications and symptomatic treatment. 2. GI protocol. Cardiology consultation. I would also recommend D-dimer and if it is positive, possibly obtain CT angio of the chest also. Guarded prognosis. Possible stress test per Cardiology. Further recommendations to follow. See orders for details. MMODL / IJN: [id number] /
[2024-09-21 07:56] LABS: Basophils # (A) 0.05 X 10*3/uL (0.00-0.10); Basophils % (A) 0.7 %; Eosinophils # (A) 0.31 X 10*3/uL (0.04-0.35); Eosinophils % (A) 4.6 %; HCT 37.9 % (37.2-46.3); HGB 12.7 g/dL (12.0-15.0); Immature Grans, Automated 0.60 %; Lymphocytes # (A) 2.25 X 10*3/uL (0.90-5.00); Lymphocytes % (A) 33.0 %; MCH 29.8 pg (27.0-32.0); MCHC 33.5 g/dL (32.0-37.0); MCV 89.0 FL (80.0-97.0); Monocytes # (A) 0.74 X 10*3/uL (0.20-1.00); Monocytes % (A) 10.9 %; NRBC Per 100 WBC 0 X 10*3/uL (0.00-0.01); Neutrophils # (A) 3.42 X 10*3/uL (1.80-7.70); Neutrophils % (A) 50.2 %; Platelet Count 242 X 10*3/uL (140-440); RBC 4.26 X 10*6/uL (4.10-5.20); RDW 13.3 % (11.5-14.5); WBC 6.81 X 10*3/uL (4.50-10.00)
[2024-09-21 08:20] LABS: African American GFR (CKD) >90 (>60 ml/min/1.73 sqM); Anion Gap 9 mmol/L; Blood Urea Nitrogen 12 mg/dL (7-17); Calcium 10.1 mg/dL (8.4-10.2); Carbon Dioxide 25 mmol/L (22-30); Chloride 107 mmol/L (98-107); Glucose 93 mg/dL (74-99); Non-African American GFR(CKD) 88 (>60 ml/min/1.73 sqM); Potassium 4.5 mmol/L (3.5-5.1); Sodium 141 mmol/L (137-145)
[2024-09-21] MEDS ORDERED: DOBUTamine DRIP for NUC MED 500 MG in DEXTROSE/WATER 1 250ML.BAG IV PRN (08:22)
[2024-09-21] MEDS: ASPIRIN 81 MG PO SCH (08:44)
[2024-09-21] MEDS ORDERED: ASPIRIN 325 MG TAB PO SCH (09:00)
--- NOTE | 2024-09-21 09:02 | P.CRDCN ---
History of Present Illness History of present illness: HISTORY OF PRESENT ILLNESS: This is a 69-year-old female with a past medical history significant for coronary artery disease with previous stenting, hypertension, hyperlipidemia, and diabetes. Patient follows in the office with Dr. Grace. We have been asked to see the patient in consultation for chest pain. Patient examined at the bedside. Patient presented to the hospital with a chief complaint of chest discomfort. Patient states she has been having right sided chest pressure. She denies any shortness of breath. Denies any radiation of the pain. Denies any dizziness or lightheadedness. She denies any chest pain or pressure at the time of examination. DIAGNOSTICS: - EKG reveals sinus mechanism with no signs of acute ischemia. - Chest xray negative for acute process. - Laboratory data: WBC 6.81. Hemoglobin 12.7. Platelet count 242. D-dimer 0.20. Sodium 141. Potassium 4.5. BUN 12. Creatinine 0.72. Troponin negative x 3 - Current home cardiac medications include lisinopril 20 mg at night, atenolol 25 mg daily, Lipitor 20 mg at night, aspirin 325 mg at night. - Most recent echocardiogram obtained in May 2021 revealed ejection fraction 55%, mild concentric LVH, trace to mild MR, trace to mild TR - Patient underwent Lexiscan stress test in May 2021 which was negative for ischemia - Cardiac catheterization history: 2005 with stenting to the RCA secondary to acute inferior NM REVIEW OF SYSTEMS: At the time of my exam: CONSTITUTIONAL: Denies fever or chills. HEENT: Denies blurred vision, vision changes, or eye pain. Denies hemoptysis CARDIOVASCULAR: Denies chest pain. Denies orthopnea. Denies PND. Denies palpitations RESPIRATORY: Denies shortness of breath. GASTROINTESTINAL: Denies abdominal pain. Denies nausea or vomiting. HEMATOLOGIC: Denies bleeding disorders. GENITOURINARY: Denies any blood in urine. SKIN: Denies pruitis. Denies rash. PHYSICAL EXAM: VITAL SIGNS: Reviewed. GENERAL: Well-developed in no acute distress. HEENT: Head is normocephalic. Pupils are equal, round. Sclerae anicteric. Mucous membranes of the mouth are moist. Neck supple. No JVD or thyromegaly LUNGS: Respirations even and unlabored. Lungs essentially clear to auscultation bilaterally. HEART: Regular rate and rhythm. S1 and S2 heard. ABDOMEN: Soft. Nondistended. Nontender. EXTREMITIES: Normal range of motion. No clubbing or cyanosis. Peripheral pulse s intact. No lower extremity edema NEUROLOGIC: Awake and alert. Oriented x 3. ASSESSMENT: Chest pain, troponin negative x 3 Coronary artery disease with previous stenting of the RCA, 2006 Hypertension Hyperlipidemia Diabetes PLAN: An acute coronary event has been ruled out Obtain 2D echo to assess cardiac structure and function Resume home cardiac medications Hold beta-dana today Patient to undergo dobutamine stress echo today If negative, she may be discharged home from a cardiac standpoint Nurse practitioner note has been reviewed by physician. Signing provider agrees with the documented findings, assessment, and plan of care documented by SENIOR VICE PRESIDENT & GENERAL COUNSEL as a scribe. Past Medical History Past Medical History: Asthma, Diabetes Mellitus, Eye Disorder, Liver Disease, Myocardial Infarction (NM), Osteoarthritis (OA), Pneumonia, Skin Disorder, Sleep Apnea/CPAP/BIPAP, Thyroid Disorder Additional Past Medical History / Comment(s): SOB with exertion, beginning of cataracts, fatty liver, psoroiatic arthritis, psoriasis, borderline sleep apnea, no current use of CPAP, hypothyroid, sensitive/delicate skin, tears and bruises easily. covid X2, RSV. cataracts BL surgery 2023 Last Myocardial Infarction Date:: 10 yrs ago History of Any Multi-Drug Resistant Organisms: None Reported Past Surgical History: Cholecystectomy, Heart Catheterization With Stent, Hysterectomy Additional Past Surgical History / Comment(s): Anal sphincter tear surgery, D&C, several miscarriages, stillbirth, laporotomy. Past Anesthesia/Blood Transfusion Reactions: Postoperative Nausea & Vomiting (PONV) Additional Past Anesthesia/Blood Transfusion Reaction / Comment(s): PONV with some surgeries, not all. Date of Last Stent Placement:: 2007 Past Psychological History: No Psychological Hx Reported Smoking Status: Former smoker Past Alcohol Use History: Rare Additional Past Alcohol Use History / Comment(s): Quit 10 yrs ago, smoked for 30 yrs. Past Drug Use History: None Reported - Past Family History Mother Family Medical History: Cancer Additional Family Medical History / Comment(s): Lung cancer, cardiomyopathy, blood clots. Medications and Allergies Home Medications Medication Instructions Recorded Confirmed Type Aspirin 325 mg PO HS 10/21/17 09/20/24 History Atorvastatin [Lipitor] 20 mg PO HS 10/21/17 09/20/24 History Montelukast [Singulair] 10 mg PO HS 10/21/17 09/20/24 History Multivitamins, Thera [Multivitamin 1 tab PO HS 10/21/17 09/20/24 History (formulary)] atenoloL 25 mg PO DAILY@1200 10/21/17 09/20/24 History lisinopriL [Zestril] 20 mg PO HS 10/21/17 09/20/24 History metFORMIN HCL [Glucophage] 500 mg PO BID@1200,2100 10/21/17 09/20/24 History Omeprazole 40 mg PO HS 11/21/18 09/20/24 History Albuterol Inhaler [Ventolin Hfa 2 puff INHALATION RT-QID PRN 03/01/21 09/20/24 H istory Inhaler] Budesonide/Glycopyr/Formoterol 2 puff INHALATION RT-BID 03/01/21 09/20/24 His tory [Breztri Aerosphere Inhaler] Biotin Complex 6 tab PO DAILY@119909/20/24 09/20/24 History Guselkumab [Tremfya Pen] 100 mg SQ Q56D 09/20/24 09/20/24 History L.acidoph,Paracasei, B.lactis 1 cap PO DAILY@119909/20/24 09/20/24 History [Probiotic] Levothyroxine Sodium [Synthroid] 88 mcg PO DAILY 09/20/24 09/20/24 History Tirzepatide [Mounjaro] 5 mg SQ MO 09/20/24 09/20/24 History Turmeric Root Extract [Turmeric 1,000 mg PO DAILY@119909/20/24 09/20/24 History Curcumin] Vitamin C 1 dose PO HS 09/20/24 09/20/24 History Allergies Allergy/AdvReac Type Severity Reaction Status Date / Time No Known Allergies Allergy Verified 09/20/24 16:41 Physical Exam Vitals: Vital Signs Temp Pulse Pulse Resp BP BP Pulse Ox 09/21/24 07:00 98.1 F 68 14 123/70 96 09/21/24 03:18 97.7 F 61 18 110/68 100 09/21/24 02:49 97.8 F 60 18 114/68 98 09/21/24 01:36 60 18 114/68 98 09/20/24 22:33 62 18 98/74 98 09/20/24 20:53 72 18 128/69 94 L 09/20/24 17:55 69 18 128/78 98 09/20/24 16:17 75 18 141/98 97 09/20/24 12:14 97.8 F 71 18 123/75 98 Intake and Output 09/20/24 09/21/24 09/21/24 22:59 06:59 14:59 Other: # Voids 1 Weight 81.647 kg Results 09/21/24 05:19 09/21/24 05:19 Cardiac Enzymes 09/20/24 09/20/24 09/20/24 Range/Units 13:45 13:45 16:26 AST 32 (14-36) U/L Troponin I <0.012 <0.012 (0.000-0.034) ng/mL 09/20/24 Range/Units 19:53 AST (14-36) U/L Troponin I <0.012 (0.000-0.034) ng/mL Coagulation 09/20/24 Range/Units 13:45 PT 10.7 (10.0-12.5) sec APTT 22.6 (22.0-30.0) sec CBC 09/20/24 09/21/24 Range/Units 13:45 05:19 WBC 8.42 6.81 (4.50-10.00) 10*3/uL RBC 4.67 4.26 (4.10-5.20) 10*6/uL Hgb 14.2 12.7 (12.0-15.0) g/dL Hct 40.6 37.9 (37.2-46.3) % Plt Count 282 242 (140-440) 10*3/uL Comprehensive Metabolic Panel 09/20/24 09/21/24 Range/Units 13:45 05:19 Sodium 142 141 (137-145) mmol/L Potassium 4.2 4.5 (3.5-5.1) mmol/L Chloride 104 107 (98-107) mmol/L Carbon Dioxide 25 25 (22-30) mmol/L BUN 8 12 (7-17) mg/dL Creatinine 0.50 L 0.72 (0.52-1.04) mg/dL Glucose 75 93 (74-99) mg/dL Calcium 11.0 H 10.1 (8.4-10.2) mg/dL AST 32 (14-36) U/L ALT 37 H (4-34) U/L Alkaline Phosphatase 80 (38-126) U/L Total Protein 7.4 (6.3-8.2) g/dL Albumin 4.8 (3.5-5.0) g/dL Current Medications Generic Name Dose Route Start Last Admin Trade Name Freq PRN Reason Stop Dose Admin Aspirin 81 mg 09/21/24 09:00 09/21/24 08:44 Aspirin 81 Mg PO 81 mg DAILY HARRISON Administration Atenolol 25 mg 09/22/24 12:00 Atenolol 25 Mg Tab PO DAILY@1200 HARRISON Atorvastatin Calcium 20 mg 09/21/24 21:00 Atorvastatin 20 Mg Tab PO HS [facility] Dobutamine HCl/Dextrose 500 mg 250 mls @ 24.494 mls/hr 09/21/24 08:22 / IV Solution IV 09/21/24 12:22 .[id number] PRN Per Protocol Protocol 10 MCG/KG/MIN Ibuprofen 400 mg 09/20/24 20:59 09/21/24 04:07 Ibuprofen 400 Mg Tab PO 400 mg Q6HR PRN Administration Pain Lisinopril 20 mg 09/21/24 21:00 Lisinopril 20 Mg Tab PO HS [facility] Nitroglycerin 0.4 mg 09/20/24 16:01 Nitroglycerin Sl Tabs 0.4 Mg Tab SUBLINGUAL Q5M PRN Chest Pain Intake and Output 09/20/24 09/21/24 09/21/24 22:59 06:59 14:59 Other: # Voids 1 Weight 81.647 kg 09/21/24 05:19 09/21/24 05:19
--- NOTE | 2024-09-21 11:53 | CA ---
Dobutamine Stress Echocardiogram Report Patricia Lopez Age: 69 Gender: F : 1955 Exam Date: 09/21/2024 11:00 Exam Location: [facility] Ordering Physician: Anca Stuart Referring Physician: [id number] Channel Program Manager: SUSIE LINDSAY Technologist: Ht (in): 68 Wt (lb): 180 Procedure CPT: Indication: CP ICD-9 Codes: Rhythm: Patient History: Cardiac Medications: SEE CHART,,,,, Medications in past 24 hours: Contrast: N/A Total Dose (mL): NA Stress Results Protocol: Dobutamine Peak Dose (???g/kg/min): 40 Duration (min:sec): Atropine:(mg) 0.5 Target HR: 130 Double Product: [id number] Resting HR: 63 Resting BP: 120 / 69 Peak HR: 131 Peak BP: 202 / 48 Max Predicted HR: 153 86 % Max Predicted HR Stress Summary: BP Response: Reason for Termination: Target HR Cardiac Symptoms: NO SYMPTOMS ECG Analysis Resting EKG: Normal sinus rhythm no normal axis normal intervals Stress EKG: Patient was given intravenous dobutamine overnight. Of 12 minutes per protocol also received 0.5 mg of atropine achieving 85% of predicted maximal heart rate without chest pain or diagnostic ST segment depression Arrhythmia: Echo Analysis Base Echo Analysis: Normal left ventricular size wall motion and systolic function Low Echo Anaylsis: Normal hyperdynamic response Peak Echo Analysis: Normal hyperdynamic response Recovery Echo: Normal MEASUREMENTS (Male/Female) Normal Values CONCLUSIONS Negative dobutamine stress echo Dr. Soto Grace MD (Electronically Signed) Final Date: 21 September 2024 11:52
--- NOTE | 2024-09-21 11:54 | CA ---
Transthoracic Echo Report Name: Patricia Lopez Age: 69 Gender: F : 1955 Exam Date: 09/21/2024 11:28 Exam Location: [facility] Ht (in): 68 Wt (lb): 180 Ordering Physician: Daniel Eastman DO Attending/Referring Phys: Retanned Leather Roller Grace Alfaro RDCS Procedure CPT: Indications: CP Cardiac Hx: Technical Quality: Fair Contrast 1: Total Dose (mL): Contrast 2: Total Dose (mL): MEASUREMENTS (Male / Female) Normal Values 2D ECHO LV Diastolic Diameter PLAX 4.0 cm 4.2 - 5.9 / 3.9 - 5.3 cm LV Systolic Diameter PLAX 3.2 cm IVS Diastolic Thickness 0.8 cm 0.6 - 1.0 / 0.6 - 0.9 cm LVPW Diastolic Thickness 0.8 cm 0.6 - 1.0 / 0.6 - 0.9 cm LV Relative Wall Thickness 0.4 RV Internal Dim ED PLAX 1.9 cm LA Systolic Diameter LX 3.9 cm 3.0 - 4.0 / 2.7 - 3.8 cm LV Diastolic Volume MOD BP 56.1 cm??? 67 - 155 / 56 - 104 cm??? LV Systolic Volume MOD BP 22.3 cm??? 22 - 58 / 19 - 49 cm??? LV Ejection Fraction MOD BP 60.3 % >= 55 % LV Cardiac Index MOD BP 1576.8 cm???/min???m??? LV Diastolic Volume MOD 4C 52.6 cm??? LV Systolic Volume MOD 4C 18.9 cm??? LV Ejection Fraction MOD 4C 64.0 % LV Cardiac Index MOD 4C 1566.8 cm???/min???m??? LV Diastolic Length 4C 7.3 cm LV Systolic Length 4C 5.5 cm LV Diastolic Volume MOD 2C 59.1 cm??? LV Systolic Volume MOD 2C 24.2 cm??? LV Ejection Fraction MOD 2C 59.1 % LV Cardiac Index MOD 2C 1625.3 cm???/min???m??? LV Diastolic Length 2C 7.4 cm LV Systolic Length 2C 6.0 cm LA Volume 38.9 cm??? 18 - 58 / 22 - 52 cm??? LA Volume Index 19.5 cm???/m??? 16 - 28 cm???/m??? M-MODE Aortic Root Diameter MM 3.0 cm LA Systolic Diameter MM 3.5 cm LA Ao Ratio MM 1.2 AV Cusp Separation MM 1.9 cm DOPPLER MV Area PHT 3.0 cm??? Mitral E Point Velocity 110.1 cm/s Mitral A Point Velocity 1.2 cm/s Mitral E to A Ratio 93.3 MV Deceleration Time 251.8 ms TR Peak Velocity 224.2 cm/s TR Peak Gradient 20.1 mmHg FINDINGS Left Ventricle Left ventricular ejection fraction is estimated at 55-60 %. Normal left ventricular systolic function with no obvious regional wall motion abnormalities. Left ventricular cavity size normal. Left ventricular wall thickness normal. Right Ventricle Normal right ventricular size and function. Right ventricular systolic pressure within normal limits. Right Atrium Normal right atrial size. Left Atrium Mildly increased left atrial diameter. Mitral Valve Structurally normal mitral valve. Trace mitral regurgitation. No mitral stenosis. Aortic Valve Trileaflet aortic valve. No aortic valve stenosis or regurgitation. Tricuspid Valve Structurally normal tricuspid valve. Trace tricuspid regurgitation. No tricuspid stenosis. Pulmonic Valve Structurally normal pulmonic valve. Trace pulmonic regurgitation. No pulmonic stenosis. Pericardium No pericardial or pleural effusion. Aorta Normal size aortic root and proximal ascending aorta. CONCLUSIONS Normal LV function Previewed by: Dr. Soto Grace MD (Electronically Signed) Final Date: 21 September 2024 11:53
[2024-09-21 12:59] VITALS: BP 126/77; PULSE 74; RESP 16; TEMP 97.9
[2024-09-21 15:22] LABS: Cholesterol 127.00 mg/dL (0.00-200.00); HDL Cholesterol 37.20 mg/dL (40.00-60.00); LDL Cholesterol,Calculated 51.8 mg/dL (0.0-131.0); Triglycerides 190.00 mg/dL (0.00-149.00); VLDL Calculation 38.00 mg/dL (5.00-40.00)
[2024-09-21] MEDS ORDERED: ATORVASTATIN 20 MG TAB PO SCH (21:00)
--- NOTE | 2024-09-23 00:59 | P.DS ---
Providers Date of admission: 09/20/24 16:02 Expected date of discharge: 09/21/24 Attending physician: Be Schwarz Consults: 09/20/24 16:01 Consult Physician Urgent Consulting Provider: Blayne Hurst Consult Reason/Comments: cp Do you want consulting provider notified?: Yes Primary care physician: Chiara Liao Hospital Course: Final diagnosis Chest pain, possible unstable angina History of coronary artery disease with stenting Diabetes mellitus, type II History of asthma, not in exacerbation History of liver disease History of degenerative joint disease GI prophylaxis DVT prophylaxis Full code Discharge disposition Patient is being discharged in a stable condition with guarded prognosis to home. Patient will follow-up with Dr. Liao in the outpatient setting upon d ischarge. Patient is to continue with current medications and outpatient follow-up with cardiology as scheduled. Total time taken is greater than 35 minutes. Hospital course This is a 69-year-old female who was recently admitted with chest pain with previous history of stenting being closely monitored. Cardiology evaluated the patient and patient is status post stress testing, which was negative. Patient reports to feeling improved home. Patient instructed to follow-up with primary care provider as well as carton machine operator on discharge. Please refer to consultation notes for further HPI. Currently no reports of chest pain, shortness of breath, or palpitations. Patient is afebrile. No reports of nausea or vomiting and patient is tolerating diet. Patient will be discharged home today. Guarded prognosis Physical exam: Gen: This is a 69-year-old female who is awake, alert and oriented x 3, well- developed adult literacy instructor appearing HEENT: Head is atraumatic, normocephalic. Pupils equal, round. Sclerae is anicteric. NECK: Supple. No JVD. No lymphadenopathy. No thyromegaly. LUNGS: Diminished breath sounds bilaterally otherwise clear to auscultation. No wheezes or rhonchi. No intercostal retractions. HEART: 1, S2 are muffled ABDOMEN: Soft. Bowel sounds are present. No masses. No tenderness. EXTREMITIES: No pedal edema. No calf tenderness. NEUROLOGICAL: Patient is awake, alert and oriented x3. Cranial nerves 2 through 12 are grossly intact. Please refer to medication reconciliation sheet for a list of medications. The impression and plan of care has been dictated by Frannie Mills, Nurse Practitioner as directed. Dr. Chong MD I have performed a history and examination and MDM of this patient, discussed the same with the dictator, and agree with the dictator's assessment and plan as written ,documented as a scribe. Based on total visit time, I have performed more than 50% of the visit. Patient Condition at Discharge: Good Plan - Discharge Summary Discharge Rx Participant: Yes New Discharge Prescriptions: New Nitroglycerin Sl Tabs [Nitrostat] 0.4 mg SUBLINGUAL Q5M PRN #20 tab PRN Reason: Chest Pain Aspirin 81 mg PO DAILY #30 tab Ibuprofen [Motrin] 400 mg PO Q6HR PRN tab PRN Reason: Pain Continue Atorvastatin [Lipitor] 20 mg PO HS Montelukast [Singulair] 10 mg PO HS lisinopriL [Zestril] 20 mg PO HS metFORMIN HCL [Glucophage] 500 mg PO BID@1200,2100 Multivitamins, Thera [Multivitamin (formulary)] 1 tab PO HS atenoloL 25 mg PO DAILY@1200 Omeprazole 40 mg PO HS Budesonide/Glycopyr/Formoterol [Breztri Aerosphere Inhaler] 2 puff INHALATION RT-BID Turmeric Root Extract [Turmeric Curcumin] 1,000 mg PO DAILY@1200 Biotin Complex 6 tab PO DAILY@1200 Tirzepatide [Mounjaro] 5 mg SQ MO Vitamin C 1 dose PO HS Albuterol Inhaler [Ventolin Hfa Inhaler] 2 puff INHALATION RT-QID PRN PRN Reason: Shortness Of Breath L.acidoph,Paracasei, B.lactis [Probiotic] 1 cap PO DAILY@1200 Levothyroxine Sodium [Synthroid] 88 mcg PO DAILY Guselkumab [Tremfya Pen] 100 mg SQ Q56D Discontinued Aspirin 325 mg PO HS Discharge Medication List Atorvastatin [Lipitor] 20 mg PO HS 10/21/17 [History] Montelukast [Singulair] 10 mg PO HS 10/21/17 [History] Multivitamins, Thera [Multivitamin (formulary)] 1 tab PO HS 10/21/17 [History] atenoloL 25 mg PO DAILY@1200 10/21/17 [History] lisinopriL [Zestril] 20 mg PO HS 10/21/17 [History] metFORMIN HCL [Glucophage] 500 mg PO BID@1200,2100 07/31/18 [History] Omeprazole 40 mg PO HS 11/21/18 [History] Albuterol Inhaler [Ventolin Hfa Inhaler] 2 puff INHALATION RT-QID PRN 03/01/21 [History] Budesonide/Glycopyr/Formoterol [Breztri Aerosphere Inhaler] 2 puff INHALATION RT-BID 03/01/21 [History] Biotin Complex 6 tab PO DAILY@1200 09/20/24 [History] Guselkumab [Tremfya Pen] 100 mg SQ Q56D 09/20/24 [History] L.acidoph,Paracasei, B.lactis [Probiotic] 1 cap PO DAILY@1200 09/20/24 [History] Levothyroxine Sodium [Synthroid] 88 mcg PO DAILY 09/20/24 [History] Tirzepatide [Mounjaro] 5 mg SQ MO 09/20/24 [History] Turmeric Root Extract [Turmeric Curcumin] 1,000 mg PO DAILY@1200 09/20/24 [History] Vitamin C 1 dose PO HS 09/20/24 [History] Aspirin 81 mg PO DAILY #30 tab 09/21/24 [Rx] Ibuprofen [Motrin] 400 mg PO Q6HR PRN tab 09/21/24 [Rx] Nitroglycerin Sl Tabs [Nitrostat] 0.4 mg SUBLINGUAL Q5M PRN #20 tab 09/21/24 [Rx] Follow up Appointment(s)/Referral(s): Chiara Liao MD [Primary Care Provider] - 1-2 days Soto Grace MD [STAFF PHYSICIAN] - 1 Week Activity/Diet/Wound Care/Special Instructions: Activity limited until follow-up Follow-up with primary care provider Follow-up with cardiology outpatient Continue taking medications as prescribed Discharge Disposition: HOME SELF-CARE
== END 2024-09-21 15:00 | disposition home or self-care (01) ==
LOC: EC 12:07 → 6NMEDSUR 16:02 → 1SOBS 09-21 00:14
PROVIDERS: ADMIT Hospitalist; ATTEND Hospitalist
DX: R07.9 Chest pain, unspecified (principal); E78.5 Hyperlipidemia, unspecified; I10 Essential (primary) hypertension; I25.10 Atherosclerotic heart disease of native coronary artery without angina pectoris; I25.2 Old myocardial infarction; K76.0 Fatty (change of) liver, not elsewhere classified; M19.90 Unspecified osteoarthritis, unspecified site; J45.909 Unspecified asthma, uncomplicated; E11.9 Type 2 diabetes mellitus without complications; Z79.82 Long term (current) use of aspirin; Z79.84 Long term (current) use of oral hypoglycemic drugs; Z79.890 Hormone replacement therapy; Z79.899 Other long term (current) drug therapy; Z95.5 Presence of coronary angioplasty implant and graft; Z79.51 Long term (current) use of inhaled steroids; Z87.891 Personal history of nicotine dependence
CPT/HCPCS: 99285; 36415; 93005; 93306; 93351; 85379; 80061; 80053; 80048; 84484; 85025 ×2; 85610; 85730; 71046; G0378 ×2